=== PATIENT | male | born 1975 | race Caucasian/White ===

== ENCOUNTER 2021-04-16 15:13 | Inpatient (IN) | payer OTHER ==
[~2021-04-16] VITALS: Ht 172.7 cm; Wt 114.1 kg
[2021-04-16 16:06] LABS: Bilirubin, Direct 3.1 mg/dL (0.0-0.3); Troponin I 0.019 ng/mL (0.000-0.040)
[2021-04-16 16:25] LABS: International Normalized Ratio 1.46
[2021-04-16 16:26] LABS: Ethanol (Alcohol), Blood, Med 87 mg/dL
[2021-04-16 16:27] LABS: Alanine Aminotransfer (ALT/SGP 89 U/L (12-78); Albumin, Blood 2.8 g/dL (3.4-5.0); Albumin/Globulin Ratio 0.6 (0.8-1.8); Alk Phos 125 U/L (50-136); Anion Gap 10 mmol/L (6-16); Aspartate Aminotrans (AST/SGOT 198 U/L (12-37); Bilirubin, Total 6.2 mg/dL (0.1-1.0); Blood Urea Nitrogen 3 mg/dL (8-24); Bun/Creatinine Ratio 5.1 (12.0-20.0); CO2, Blood 28 mmol/L (21-32); Calcium, Blood 7.9 mg/dL (8.5-10.1); Chloride, Blood 94 mmol/L (98-108); Creatinine, Blood 0.59 mg/dL (0.60-1.20); Globulin, Blood 4.5 g/dL (2.2-4.0); Glomerular Filtration Rate >60 (60-); Glucose, Blood 174 mg/dL (70-99); Potassium, Blood 3.2 mmol/L (3.5-5.5); Sodium, Blood 132 mmol/L (136-145); Total Protein, Blood 7.3 g/dL (6.4-8.2)
[2021-04-16 16:29] LABS: Thyroid Stimulating Hormone 0.829 uIU/mL (0.360-4.800)
[2021-04-16 18:08] LABS: Source, Urine Peds U Bag
[2021-04-16 18:15] LABS: Appearance, Urine Cloudy (Clear); Blood, Urine 2+ (Neg); Color, Urine Amber (P-Yellow); Glucose Qualitative, Urine Neg (Neg); Ketones, Urine Neg (Neg); Leukocyte Esterase, Urine 3+ (Neg); Nitrite, Urine Pos (Neg); Protein, Urine 2+ (Neg); Urobilinogen, Urine 2+ (Normal)
[2021-04-16 18:34] LABS: Bilirubin, Urine 1+ (Neg)
[2021-04-16 18:37] LABS: White Blood Cells, Urine TNTC /hpf (0-5)
[2021-04-16 18:38] LABS: Bacteria Many /hpf; Squamous Epithelial Cells Rare /hpf (Few); U Amphetamine Screen Not Detected; U Barbituate Screen Not Detected; U Benzodiazapine Screen Not Detected; U Buprenorphine Screen Not Detected; U Cannabinoids Screen DETECTED; U Cocaine Screen Not Detected; U Methadone Screen Not Detected; U Methamphetamine Screen Not Detected; U Opiates Screen DETECTED; U Oxycodone Screen Not Detected; U Phencyclidine Screen Not Detected; U Propoxyphene Screen Not Detected
--- NOTE | 2021-04-16 19:55 | NUR ---
REPORT FROM CADY LANDIN RN. PT TO FLOOR BY YEVGENIY AND STANDS TO TRANSFER TO BED. STEADY ON FEET. ALERT AND ORIENTED. BED IN LOWEST POSITION. CALL LIGHT IN REACH. ORIENTED TO UNIT AND ROOM.
[2021-04-16 21:31] LABS: Influenza A, PCR NEGATIVE (NEGATIVE); Influenza B, PCR NEGATIVE (NEGATIVE); Resp Syncytial Virus, PCR NEGATIVE (NEGATIVE); SARS-Cov-2 (COVID-19) PCR, MMC NEGATIVE (NEGATIVE)
--- NOTE | 2021-04-17 04:08 | NUR ---
ENTRY LEVEL SALES ASSOCIATE SUMMARY ADMITTED FOR SEVERE SEPSIS. PT IS A FULL CODE. PLAN FOR PARACENTESIS TODAY TO REMOVE ASCITES. HE HAS A VERY SWOLLEN ABDOMEN THAT IS CAUSING HIM PAIN - MEDICATED X1 WITH TYLENOL FOR THE PAIN AND FEVER. FEVER HAS RESOLVED. PT HAVING SOME DIFFICULTY SLEEPING UNTIL 0300. PT ON TELE AND HAS BEEN SINUS TACH IN THE 100S. SPOKE WITH THE PT ABOUT HIS NEW DIAGNOSIS OF CIRRHOSIS. HE HAS REDNESS AND WARMTH TO THE PERIUMBILICAL AREA. INDEPENDENT IN THE ROOM. AMBULATES WITHOUT DIFFICULTY.
[2021-04-17 05:11] LABS: BASOPHILS ABSOLUTE AUTO 0.09 K/mm3 (0.00-0.23); BASOPHILS PERCENT AUTO 1 % (0-2); EOSINOPHILS ABSOLUTE AUTO 0.18 K/mm3 (0.00-0.68); EOSINOPHILS PERCENT AUTO 2 % (0-6); Hematocrit 35.8 % (37.0-53.0); Hemoglobin 12.5 g/dL (13.5-17.5); IMMATURE GRAN PERCENT AUTO 2 % (0-1); LYMPHOCYTES ABSOLUTE AUTO 2.07 K/mm3 (0.84-5.20); LYMPHOCYTES PERCENT AUTO 18 % (21-46); MONOCYTES ABSOLUTE AUTO 1.59 K/mm3 (0.16-1.47); MONOCYTES PERCENT AUTO 14 % (4-13); Mean Corpuscular HGB 36.4 pg (26.0-34.0); Mean Corpuscular HGB Conc 34.9 g/dL (31.5-36.5); Mean Corpuscular Volume 104 fL (80-100); Mean Platelet Volume 11.6 fL (9.1-12.4); NEUTROPHILS ABSOLUTE AUTO 7.24 K/mm3 (1.96-9.15); NEUTROPHILS PERCENT AUTO 64 % (41-73); Platelet Count 118 K/mm3 (150-400); RDW Coefficient Variation 15.4 % (11.7-14.2); RDW Standard Deviation 58.8 fL (35.1-46.3); Red Blood Cell Count 3.43 M/mm3 (4.30-5.90); White Blood Cell Count 11.37 K/mm3 (4.00-11.30)
[2021-04-17 05:27] LABS: International Normalized Ratio 1.56; Prothrombin Time Results 15.9 Sec (9.7-11.5)
[2021-04-17 05:56] LABS: Alanine Aminotransfer (ALT/SGP 74 U/L (12-78); Albumin, Blood 2.4 g/dL (3.4-5.0); Albumin/Globulin Ratio 0.6 (0.8-1.8); Alk Phos 121 U/L (50-136); Anion Gap 8 mmol/L (6-16); Aspartate Aminotrans (AST/SGOT 158 U/L (12-37); Bilirubin, Total 6.3 mg/dL (0.1-1.0); Blood Urea Nitrogen 4 mg/dL (8-24); Bun/Creatinine Ratio 6.7 (12.0-20.0); CO2, Blood 30 mmol/L (21-32); Calcium, Blood 7.8 mg/dL (8.5-10.1); Chloride, Blood 96 mmol/L (98-108); Globulin, Blood 4.3 g/dL (2.2-4.0); Glomerular Filtration Rate >60 (60-); Glucose, Blood 126 mg/dL (70-99); Potassium, Blood 2.8 mmol/L (3.5-5.5); Sodium, Blood 134 mmol/L (136-145); Total Protein, Blood 6.7 g/dL (6.4-8.2)
[2021-04-17 15:19] LABS: Automated BF WBC Count 0.397 K/mm3 (0-999); Body Fluid WBC Count 397 /mm3 (0-999)
[2021-04-17 15:37] LABS: Lactate Dehydrogenase, Body Fl 55 U/L
[2021-04-17 15:43] LABS: Glucose, Body Fluid 179 mg/dL; Protein, Body Fluid 0.6 g/dL
[2021-04-17 16:38] LABS: RBC Count, Body Fluid 113 /mm3 (0-0)
[2021-04-17] MEDS ORDERED: SPIR25 PO (17:19)
[2021-04-17] MEDS ORDERED: CEPH500 PO (17:19)
[2021-04-17 17:29] LABS: Total Cell Count, Body Fluid 100
[2021-04-17 17:30] LABS: Appearance, Body Fluid Hazy (Clear); Color, Body Fluid Yellow (None-Yellow)
--- NOTE | 2021-04-17 18:18 | NUR ---
SHIFT SUMMARY/ DISCHARGE NOTE PT DISCHARGED HOME, LEFT ROOM VIA STEADY GAIT PRIOR TO THIS NOTE WITH RESPITE CARE PROVIDER ESCORT. IV DC'D AND BELONGINGS RETURNED. PT EDUCATED ON CIRRHOSIS, ASCITES, ETOH CESSATION AND NEW MEDICATIONS. PT AGREES TO CASE MAKER MEDICATIONS FROM [facility] AND TO TAKE MEDICATIONS PRESCRIBED. HE ALSO AGREES TO FOLLOW UP AND TO ESTABLISH A PCP.
[2021-04-18 00:11] LABS: HBSAG SCREEN Negative (Negative); HEP A AB, IGM Negative (Negative); HEP B CORE AB, TOT Negative (Negative); HEP C VIRUS AB >11.0 (0.0-0.9)
== END 2021-04-17 18:32 | disposition home or self-care (01) | DRG 872 ==
LOC: ER 15:13 → MEDS 18:02
PROVIDERS: Emergency Medicine; Physician Assistant; ADMIT Internal Medicine
PROC: HZ2ZZZZ Detoxification Services for Substance Abuse Treatment (ICD-10-PCS; principal; 2021-04-16)
PROC: 0W9G3ZZ Drainage of Peritoneal Cavity, Percutaneous Approach (ICD-10-PCS; 2021-04-17)
DX: A41.9 Sepsis, unspecified organism (principal); N39.0 Urinary tract infection, site not specified; L03.311 Cellulitis of abdominal wall; B17.10 Acute hepatitis C without hepatic coma; K76.6 Portal hypertension; R65.20 Severe sepsis without septic shock; Z20.822 Contact with and (suspected) exposure to COVID-19; F10.20 Alcohol dependence, uncomplicated; E87.6 Hypokalemia; Y90.4 Blood alcohol level of 80-99 mg/100 ml; K70.11 Alcoholic hepatitis with ascites; Z53.20 Procedure and treatment not carried out because of patient's decision for unspecified reasons; Z87.891 Personal history of nicotine dependence
CPT/HCPCS: 0241U; 36415; 49083; 71045; 74176; 74177; 80053; 81001; 82040; 82247; 82248; 82945; 83605; 83615; 83880; 84157; 84443; 84484; 85025; 85610; 86704; 86708; 86803; 87040; 87070; 87086; 87205; 87340; 89051; 96365; 96375; 99285-25; A9270; G0480; J0696; J3370; J3411; J3475; J7030; J7042; J7050; Q9967

== ENCOUNTER → 2021-04-16 | Outpatient (CLI) | payer OTHER ==
[~2021-04-16] MED LIST: CEPH500 PO; SPIR25 PO
[2021-04-16 13:27] LABS: BASOPHILS PERCENT AUTO 1 % (0-2); EOSINOPHILS ABSOLUTE AUTO 0.14 K/mm3 (0.00-0.68); EOSINOPHILS PERCENT AUTO 1 % (0-6); Hemoglobin 13.1 g/dL (13.5-17.5); IMMATURE GRAN ABSOLUTE AUTO 0.42 K/mm3 (0.00-0.10); IMMATURE GRAN PERCENT AUTO 3 % (0-1); LYMPHOCYTES ABSOLUTE AUTO 2.59 K/mm3 (0.84-5.20); LYMPHOCYTES PERCENT AUTO 17 % (21-46); MONOCYTES ABSOLUTE AUTO 1.67 K/mm3 (0.16-1.47); MONOCYTES PERCENT AUTO 11 % (4-13); Mean Corpuscular HGB 37.3 pg (26.0-34.0); Mean Corpuscular HGB Conc 36.4 g/dL (31.5-36.5); Mean Corpuscular Volume 103 fL (80-100); Mean Platelet Volume 11.4 fL (9.1-12.4); NEUTROPHILS ABSOLUTE AUTO 9.93 K/mm3 (1.96-9.15); NEUTROPHILS PERCENT AUTO 67 % (41-73); Platelet Count 146 K/mm3 (150-400); RDW Coefficient Variation 15.4 % (11.7-14.2); RDW Standard Deviation 58.2 fL (35.1-46.3); Red Blood Cell Count 3.51 M/mm3 (4.30-5.90); White Blood Cell Count 14.85 K/mm3 (4.00-11.30)
[2021-04-16 14:13] LABS: International Normalized Ratio 1.45; Prothrombin Time Results 14.9 Sec (9.7-11.5)
[2021-04-16 14:22] LABS: Alanine Aminotransfer (ALT/SGP 91 U/L (12-78); Albumin, Blood 2.9 g/dL (3.4-5.0); Albumin/Globulin Ratio 0.6 (0.8-1.8); Alk Phos 138 U/L (50-136); Anion Gap 10 mmol/L (6-16); Aspartate Aminotrans (AST/SGOT 208 U/L (12-37); Bilirubin, Total 5.9 mg/dL (0.1-1.0); Blood Urea Nitrogen 4 mg/dL (8-24); Bun/Creatinine Ratio 6.4 (12.0-20.0); CO2, Blood 31 mmol/L (21-32); Calcium, Blood 8.2 mg/dL (8.5-10.1); Chloride, Blood 93 mmol/L (98-108); Creatinine, Blood 0.63 mg/dL (0.60-1.20); Globulin, Blood 4.7 g/dL (2.2-4.0); Glomerular Filtration Rate >60 (60-); Glucose, Blood 142 mg/dL (70-99); Potassium, Blood 2.8 mmol/L (3.5-5.5); Sodium, Blood 134 mmol/L (136-145); Thyroid Stimulating Hormone 0.915 uIU/mL (0.360-4.800); Total Protein, Blood 7.6 g/dL (6.4-8.2)
== END | disposition home or self-care (01) ==
LOC: LAB SHORT 13:07
PROVIDERS: Physician Assistant
DX: R53.83 Other fatigue (principal); R18.8 Other ascites; R60.0 Localized edema
CPT/HCPCS: 80053; 83880; 84443; 85025; 85610

== ENCOUNTER → 2021-04-22 | Outpatient (CLI) | payer OTHER ==
[2021-04-22 19:36] LABS: Blood, Urine Neg (Neg); Glucose Qualitative, Urine Neg (Neg); Ketones, Urine Neg (Neg); Leukocyte Esterase, Urine 1+ (Neg); Nitrite, Urine Neg (Neg); Protein, Urine 1+ (Neg); Urobilinogen, Urine 2+ (Normal)
[2021-04-22 19:55] LABS: Appearance, Urine Hazy (Clear); Bilirubin, Urine 1+ (Neg); Color, Urine Amber (P-Yellow)
[2021-04-22 19:56] LABS: Bacteria Rare /hpf; Mucus Mod (0-Heavy); Red Blood Cells, Urine 0-2 /hpf (0-2); Squamous Epithelial Cells Rare /hpf (Few)
== END | disposition home or self-care (01) ==
LOC: LAB 15:30 → LAB SHORT 15:30
PROVIDERS: Nurse Practitioner Family
DX: N39.0 Urinary tract infection, site not specified (principal)
CPT/HCPCS: 81001; 87086

== ENCOUNTER → 2021-07-07 | Outpatient (CLI) | payer OTHER ==
[2021-07-07 15:00] LABS: Alanine Aminotransfer (ALT/SGP 87 U/L (12-78); Albumin, Blood 3.3 g/dL (3.4-5.0); Albumin/Globulin Ratio 1.1 (0.8-1.8); Alk Phos 130 U/L (50-136); Anion Gap 7 mmol/L (6-16); Aspartate Aminotrans (AST/SGOT 155 U/L (12-37); Bilirubin, Total 11.6 mg/dL (0.1-1.0); Blood Urea Nitrogen 8 mg/dL (8-24); Bun/Creatinine Ratio 13.4 (12.0-20.0); CO2, Blood 29 mmol/L (21-32); Calcium, Blood 8.8 mg/dL (8.5-10.1); Chloride, Blood 102 mmol/L (98-108); Glomerular Filtration Rate >60 (60-); Glucose, Blood 110 mg/dL (70-99); Potassium, Blood 3.8 mmol/L (3.5-5.5); Sodium, Blood 138 mmol/L (136-145); Total Protein, Blood 6.3 g/dL (6.4-8.2)
[2021-07-07 15:18] LABS: International Normalized Ratio 1.79; Prothrombin Time Results 18.1 Sec (9.7-11.5)
== END | disposition home or self-care (01) ==
LOC: LAB SHORT 14:20
PROVIDERS: Family Medicine
DX: H15.89 Other disorders of sclera (principal)
CPT/HCPCS: 80053; 85610

== ENCOUNTER 2021-08-23 14:50 | Emergency (ER) | payer OTHER ==
[~2021-08-23] VITALS: Ht 170.2 cm; Wt 111.1 kg
[2021-08-23 15:29] LABS: BASOPHILS ABSOLUTE AUTO 0.09 K/mm3 (0.00-0.23); BASOPHILS PERCENT AUTO 1 % (0-2); EOSINOPHILS ABSOLUTE AUTO 0.08 K/mm3 (0.00-0.68); EOSINOPHILS PERCENT AUTO 1 % (0-6); Hematocrit 38.9 % (37.0-53.0); Hemoglobin 13.9 g/dL (13.5-17.5); IMMATURE GRAN ABSOLUTE AUTO 0.09 K/mm3 (0.00-0.10); IMMATURE GRAN PERCENT AUTO 1 % (0-1); LYMPHOCYTES ABSOLUTE AUTO 2.63 K/mm3 (0.84-5.20); LYMPHOCYTES PERCENT AUTO 20 % (21-46); MONOCYTES ABSOLUTE AUTO 1.89 K/mm3 (0.16-1.47); MONOCYTES PERCENT AUTO 14 % (4-13); Mean Corpuscular HGB 36.2 pg (26.0-34.0); Mean Corpuscular HGB Conc 35.7 g/dL (31.5-36.5); Mean Corpuscular Volume 101 fL (80-100); Mean Platelet Volume 9.5 fL (9.1-12.4); NEUTROPHILS ABSOLUTE AUTO 8.73 K/mm3 (1.96-9.15); NEUTROPHILS PERCENT AUTO 65 % (41-73); Platelet Count 136 K/mm3 (150-400); RDW Coefficient Variation 13.6 % (11.7-14.2); RDW Standard Deviation 50.4 fL (35.1-46.3); Red Blood Cell Count 3.84 M/mm3 (4.30-5.90); White Blood Cell Count 13.51 K/mm3 (4.00-11.30)
[2021-08-23 15:43] LABS: International Normalized Ratio 1.58; Prothrombin Time Results 16.1 Sec (9.7-11.5)
[2021-08-23 15:46] LABS: Albumin, Blood 3.1 g/dL (3.4-5.0); Albumin/Globulin Ratio 1.1 (0.8-1.8); Bilirubin, Direct 3.9 mg/dL (0.0-0.3); Bilirubin, Indirect 4.9 mg/dL (0.1-0.7); Bilirubin, Total 8.8 mg/dL (0.1-1.0); Bun/Creatinine Ratio 16.3 (12.0-20.0); Calcium, Blood 9.1 mg/dL (8.5-10.1); Creatinine, Blood 0.74 mg/dL (0.60-1.20); Globulin, Blood 2.7 g/dL (2.2-4.0); Potassium, Blood 3.5 mmol/L (3.5-5.5); Total Protein, Blood 5.8 g/dL (6.4-8.2)
[2021-08-23 20:37] LABS: Automated BF WBC Count 0.083 K/mm3 (0-999); Body Fluid WBC Count 83 /mm3 (0-999)
[2021-08-23 20:40] LABS: Protein, Body Fluid 0.3 g/dL
[2021-08-23 20:59] LABS: RBC Count, Body Fluid 1011 /mm3 (0-0)
[2021-08-23 21:27] LABS: Total Cell Count, Body Fluid 100
[2021-08-23 21:28] LABS: Appearance, Body Fluid Hazy (Clear); Color, Body Fluid Yellow (None-Yellow)
== END 2021-08-23 21:53 | disposition home or self-care (01) ==
LOC: ER 14:50
PROVIDERS: Emergency Medicine; Physician Assistant
DX: R10.9 Unspecified abdominal pain (principal); Z79.899 Other long term (current) drug therapy; Z87.891 Personal history of nicotine dependence
CPT/HCPCS: 36415; 80048; 80076; 83690; 84157; 85025; 85610; 89051; J2405; J7030

== ENCOUNTER 2021-09-01 13:35 | Inpatient (IN) | payer OTHER ==
[~2021-09-01] VITALS: Ht 172.7 cm; Wt 108.1 kg
[2021-09-01 15:19] LABS: BASOPHILS ABSOLUTE AUTO 0.07 K/mm3 (0.00-0.23); BASOPHILS PERCENT AUTO 0 % (0-2); EOSINOPHILS ABSOLUTE AUTO 0.05 K/mm3 (0.00-0.68); EOSINOPHILS PERCENT AUTO 0 % (0-6); Hematocrit 37.3 % (37.0-53.0); Hemoglobin 13.1 g/dL (13.5-17.5); IMMATURE GRAN ABSOLUTE AUTO 0.21 K/mm3 (0.00-0.10); IMMATURE GRAN PERCENT AUTO 1 % (0-1); LYMPHOCYTES ABSOLUTE AUTO 2.87 K/mm3 (0.84-5.20); LYMPHOCYTES PERCENT AUTO 13 % (21-46); MONOCYTES ABSOLUTE AUTO 2.19 K/mm3 (0.16-1.47); MONOCYTES PERCENT AUTO 10 % (4-13); Mean Corpuscular HGB 35.2 pg (26.0-34.0); Mean Corpuscular HGB Conc 35.1 g/dL (31.5-36.5); Mean Corpuscular Volume 100 fL (80-100); Mean Platelet Volume 10.3 fL (9.1-12.4); NEUTROPHILS ABSOLUTE AUTO 17.21 K/mm3 (1.96-9.15); NEUTROPHILS PERCENT AUTO 76 % (41-73); Platelet Count 117 K/mm3 (150-400); RDW Coefficient Variation 14.3 % (11.7-14.2); RDW Standard Deviation 52.8 fL (35.1-46.3); Red Blood Cell Count 3.72 M/mm3 (4.30-5.90)
[2021-09-01 15:33] LABS: Albumin/Globulin Ratio 1.2 (0.8-1.8); Bilirubin, Direct 3.5 mg/dL (0.0-0.3); Bilirubin, Indirect 6.6 mg/dL (0.1-0.7); Bilirubin, Total 10.1 mg/dL (0.1-1.0); Bun/Creatinine Ratio 26.2 (12.0-20.0); Calcium, Blood 8.5 mg/dL (8.5-10.1); Creatinine, Blood 0.8 mg/dL (0.60-1.20); Globulin, Blood 2.6 g/dL (2.2-4.0); Potassium, Blood 4.8 mmol/L (3.5-5.5); Total Protein, Blood 5.6 g/dL (6.4-8.2)
[2021-09-01 16:39] LABS: Source, Urine Clean Catch
[2021-09-01 16:45] LABS: Appearance, Urine Clear (Clear); Blood, Urine 4+ (Neg); Color, Urine Amber (P-Yellow); Glucose Qualitative, Urine Neg (Neg); Ketones, Urine 1+ (Neg); Leukocyte Esterase, Urine 1+ (Neg); Nitrite, Urine Neg (Neg); Protein, Urine 1+ (Neg); Specific Gravity, Urine 1.025 (1.003-1.022); Urobilinogen, Urine 1+ (Normal)
[2021-09-01 16:54] LABS: Bilirubin, Urine 1+ (Neg)
[2021-09-01 16:56] LABS: Bacteria Rare /hpf; Squamous Epithelial Cells Not Seen /hpf (Few); White Blood Cells, Urine 0-2 /hpf (0-5)
[2021-09-01 18:56] LABS: International Normalized Ratio 1.75; Prothrombin Time Results 17.7 Sec (9.7-11.5)
[2021-09-01 19:32] LABS: Body Fluid WBC Count 70 /mm3 (0-999)
[2021-09-01 19:53] LABS: Appearance, Body Fluid Hazy (Clear); Color, Body Fluid Yellow (None-Yellow); RBC Count, Body Fluid 85 /mm3 (0-0)
[2021-09-01 19:58] LABS: Total Cell Count, Body Fluid 100
[2021-09-01 20:02] LABS: Glucose, Body Fluid 135 mg/dL; Lactate Dehydrogenase, Body Fl 46 U/L; Protein, Body Fluid 0.3 g/dL
--- NOTE | 2021-09-01 22:40 | NUR ---
RECIEVED FROM LAB CRITICAL VALUE OF LACTIC ACID 2.6, DISCUSSED WITH RD PROJECT MANAGER STACY; NOT NOTIFIED VALUE IS DOWN FROM PREVIOUS 3.4 IN ER BEFORE PT WAS ADMITTED TO MEDICAL FLOOR THIS EVENING.
[2021-09-02 05:50] LABS: BASOPHILS ABSOLUTE AUTO 0.07 K/mm3 (0.00-0.23); BASOPHILS PERCENT AUTO 0 % (0-2); EOSINOPHILS ABSOLUTE AUTO 0.18 K/mm3 (0.00-0.68); EOSINOPHILS PERCENT AUTO 1 % (0-6); Hematocrit 37.1 % (37.0-53.0); Hemoglobin 13.2 g/dL (13.5-17.5); IMMATURE GRAN ABSOLUTE AUTO 0.15 K/mm3 (0.00-0.10); IMMATURE GRAN PERCENT AUTO 1 % (0-1); LYMPHOCYTES ABSOLUTE AUTO 2.51 K/mm3 (0.84-5.20); LYMPHOCYTES PERCENT AUTO 16 % (21-46); MONOCYTES ABSOLUTE AUTO 2.16 K/mm3 (0.16-1.47); MONOCYTES PERCENT AUTO 14 % (4-13); Mean Corpuscular HGB 35.8 pg (26.0-34.0); Mean Corpuscular HGB Conc 35.6 g/dL (31.5-36.5); Mean Corpuscular Volume 101 fL (80-100); NEUTROPHILS ABSOLUTE AUTO 10.53 K/mm3 (1.96-9.15); NEUTROPHILS PERCENT AUTO 68 % (41-73); Platelet Count 108 K/mm3 (150-400); RDW Coefficient Variation 14.4 % (11.7-14.2); RDW Standard Deviation 52.3 fL (35.1-46.3); Red Blood Cell Count 3.69 M/mm3 (4.30-5.90)
--- NOTE | 2021-09-02 05:50 | NUR ---
PT IS A/O, IND IN ROOM. ADMITTED THIS SHIFT FROM ER DUE TO CELLULITIS FROM PARASCENTESIS SITE. 2 DRAINING PUNCTURE SITES DRAINING SEROSANGUINOUS FLUID, MANY ATTEMPTS TO DRESS, ASCIIES, MEDICATED FOR ABDOMINAL PAIN AND HEARTBURN. DELMER URINE. PT IS JAUNDICED.
[2021-09-02 06:11] LABS: Albumin, Blood 2.9 g/dL (3.4-5.0); Albumin/Globulin Ratio 1.1 (0.8-1.8); Bilirubin, Total 7.5 mg/dL (0.1-1.0); Bun/Creatinine Ratio 23.6 (12.0-20.0); Calcium, Blood 8.4 mg/dL (8.5-10.1); Creatinine, Blood 0.72 mg/dL (0.60-1.20); Globulin, Blood 2.6 g/dL (2.2-4.0); Potassium, Blood 4.5 mmol/L (3.5-5.5); Total Protein, Blood 5.5 g/dL (6.4-8.2)
[2021-09-02] MEDS ORDERED: LASIX80 MG PO (07:32)
[2021-09-02] MEDS ORDERED: ALDACTONE100 M1 PO (07:33)
--- NOTE | 2021-09-02 18:03 | NUR ---
DAYSHIFT SUMMARY Vitals stable this shift, patient reports severe abdominal pain, requesting PRN fentynal Q6H. Paracentesis done yesterday, puncture sites RUQ/LUQ. LUQ coupious amount of drainage from puncture, change dressing Q2H. Serosainguinous drainage noted. RUQ scant/mild drainage changed dressing x2 this shift. RLE +2 pitting edema, +3 in right foot. LLE +2 pitting edema & +4 pitting in left foot. Patient reports numbness/burning in feet at times. MD started patient on Bumex this shift & ordered fluid restriction. Awaiting cultures, possible discharge home tomorrow. Vital signs stable, afebrile.
[2021-09-03 05:15] LABS: BASOPHILS PERCENT AUTO 1 % (0-2); EOSINOPHILS ABSOLUTE AUTO 0.25 K/mm3 (0.00-0.68); EOSINOPHILS PERCENT AUTO 2 % (0-6); Hematocrit 35.5 % (37.0-53.0); Hemoglobin 12.4 g/dL (13.5-17.5); IMMATURE GRAN ABSOLUTE AUTO 0.15 K/mm3 (0.00-0.10); IMMATURE GRAN PERCENT AUTO 1 % (0-1); LYMPHOCYTES ABSOLUTE AUTO 3.11 K/mm3 (0.84-5.20); LYMPHOCYTES PERCENT AUTO 23 % (21-46); MONOCYTES ABSOLUTE AUTO 2.15 K/mm3 (0.16-1.47); MONOCYTES PERCENT AUTO 16 % (4-13); Mean Corpuscular HGB 35.6 pg (26.0-34.0); Mean Corpuscular HGB Conc 34.9 g/dL (31.5-36.5); Mean Corpuscular Volume 102 fL (80-100); Mean Platelet Volume 10.2 fL (9.1-12.4); NEUTROPHILS ABSOLUTE AUTO 8.04 K/mm3 (1.96-9.15); NEUTROPHILS PERCENT AUTO 58 % (41-73); Platelet Count 101 K/mm3 (150-400); RDW Coefficient Variation 14.4 % (11.7-14.2); Red Blood Cell Count 3.48 M/mm3 (4.30-5.90)
--- NOTE | 2021-09-03 05:17 | NUR ---
SHIFT SUMMARY 46 YR M ADMITTED ON 09/01/21 FOR SEPSIS ABDOMINAL WALL CELLULITIS. FULL CODE. NO ACUTE CHANGES THIS SHIFT. LLQ WEEPING AND DRESSING CHANGED THIS SHIFT (ABD PADS, TAPE). DRAINAGE IS SEROSAINGUINOUS AND ABD PADS WERE WET THROUGH. MEPILEX OVER PUNCTURE SITE FROM PARACENTESIS WAS CLEAN, DRY, AND INTACT. PT C/O PAIN IN HIS ABDOMEN AND WAS MEDICATED W/ FENTANYL PER EMAR. HE ALSO C/O SEVERE HEARTBURN AND WAS GIVEN TUMS PER EMAR WHICH HE STATED GAVE HIM RELIEF. PLAN IS FOR ANOTHER PARACENTESIS TODAY THEN POSSIBLE DISCHARGE.
[2021-09-03 05:53] LABS: Albumin, Blood 2.5 g/dL (3.4-5.0); Albumin/Globulin Ratio 1.1 (0.8-1.8); Bilirubin, Total 6.6 mg/dL (0.1-1.0); Bun/Creatinine Ratio 20.2 (12.0-20.0); Calcium, Blood 7.8 mg/dL (8.5-10.1); Creatinine, Blood 0.79 mg/dL (0.60-1.20); Globulin, Blood 2.3 g/dL (2.2-4.0); Potassium, Blood 4.7 mmol/L (3.5-5.5); Total Protein, Blood 4.8 g/dL (6.4-8.2)
[2021-09-03] MEDS ORDERED: BUME1 PO (10:26)
[2021-09-03] MEDS ORDERED: CEPH500 PO (10:26)
[2021-09-03] MEDS ORDERED: SPIRONOLACTONE100 M3 PO (10:27)
== END 2021-09-03 12:30 | disposition home or self-care (01) | DRG 862 ==
LOC: ER 13:35 → MEDS 13:36 → ER 20:20 → MEDS 20:20
PROVIDERS: Family Medicine; Physician Assistant; Student in an Organized Health Care Education/Training Program; ADMIT Internal Medicine
PROC: 0W9G3ZZ Drainage of Peritoneal Cavity, Percutaneous Approach (ICD-10-PCS; principal; 2021-09-03)
PROC: 3E03329 Introduction of Other Anti-infective into Peripheral Vein, Percutaneous Approach (ICD-10-PCS; 2021-09-03)
DX: T81.41XA Infection following a procedure, superficial incisional surgical site, initial encounter (principal); A41.9 Sepsis, unspecified organism; R65.20 Severe sepsis without septic shock; L03.311 Cellulitis of abdominal wall; E87.1 Hypo-osmolality and hyponatremia; J90 Pleural effusion, not elsewhere classified; K74.60 Unspecified cirrhosis of liver; B19.20 Unspecified viral hepatitis C without hepatic coma; D69.6 Thrombocytopenia, unspecified; F17.210 Nicotine dependence, cigarettes, uncomplicated; E87.70 Fluid overload, unspecified; K70.40 Alcoholic hepatic failure without coma; K70.11 Alcoholic hepatitis with ascites; Z79.2 Long term (current) use of antibiotics; Z79.899 Other long term (current) drug therapy
CPT/HCPCS: 36415; 49082; 49083; 74177; 80048; 80053; 80076; 81001; 82945; 83605; 83615; 84157; 85025; 85610; 87070; 87086; 87205; 89051; 96365; 96372; 96375; 96376; 99284-25; A9270; G0378; J0690; J0696; J1650; J2060; J2405; J3010; J3370; J7060; Q9967

== ENCOUNTER 2021-09-14 18:15 | Inpatient (IN) | payer OTHER ==
[~2021-09-14] VITALS: Ht 170.2 cm; Wt 91.9 kg
[~2021-09-14 18:15] MED LIST changes: +ALDACTONE100 M1 PO; +BUME1 PO; +LASIX80 MG PO; +SPIRONOLACTONE100 M3 PO
[2021-09-14 20:17] LABS: BASOPHILS ABSOLUTE AUTO 0.06 K/mm3 (0.00-0.23); BASOPHILS PERCENT AUTO 0 % (0-2); EOSINOPHILS PERCENT AUTO 0 % (0-6); Hematocrit 37.6 % (37.0-53.0); Hemoglobin 14.1 g/dL (13.5-17.5); IMMATURE GRAN PERCENT AUTO 1 % (0-1); LYMPHOCYTES ABSOLUTE AUTO 2.38 K/mm3 (0.84-5.20); LYMPHOCYTES PERCENT AUTO 10 % (21-46); MONOCYTES ABSOLUTE AUTO 3.06 K/mm3 (0.16-1.47); MONOCYTES PERCENT AUTO 13 % (4-13); Mean Corpuscular HGB 35.3 pg (26.0-34.0); Mean Corpuscular HGB Conc 37.5 g/dL (31.5-36.5); Mean Corpuscular Volume 94 fL (80-100); Mean Platelet Volume 10.9 fL (9.1-12.4); NEUTROPHILS ABSOLUTE AUTO 17.01 K/mm3 (1.96-9.15); NEUTROPHILS PERCENT AUTO 74 % (41-73); Platelet Count 86 K/mm3 (150-400); RDW Coefficient Variation 14.6 % (11.7-14.2); RDW Standard Deviation 49.5 fL (35.1-46.3); White Blood Cell Count 22.91 K/mm3 (4.00-11.30)
[2021-09-14 20:45] LABS: Magnesium, Blood 2.3 mg/dL (1.6-2.4)
[2021-09-14 20:49] LABS: Alanine Aminotransfer (ALT/SGP 108 U/L (12-78); Albumin, Blood 2.6 g/dL (3.4-5.0); Alk Phos 175 U/L (50-136); Anion Gap 10 mmol/L (6-16); Aspartate Aminotrans (AST/SGOT 190 U/L (12-37); Bilirubin, Total 11.9 mg/dL (0.1-1.0); Blood Urea Nitrogen 46 mg/dL (8-24); Bun/Creatinine Ratio 41.8 (12.0-20.0); CO2, Blood 31 mmol/L (21-32); Calcium, Blood 8.7 mg/dL (8.5-10.1); Chloride, Blood 75 mmol/L (98-108); Globulin, Blood 2.7 g/dL (2.2-4.0); Glomerular Filtration Rate 84 (60-); Glucose, Blood 125 mg/dL (70-99); Potassium, Blood 4.8 mmol/L (3.5-5.5); Sodium, Blood 116 mmol/L (136-145); Total Protein, Blood 5.3 g/dL (6.4-8.2)
[2021-09-14 20:53] LABS: Ethanol (Alcohol), Blood, Med <3 mg/dL
[2021-09-14 21:28] LABS: International Normalized Ratio 1.8; Prothrombin Time Results 18.2 Sec (9.7-11.5)
[2021-09-14 21:38] LABS: Automated BF WBC Count 0.003 K/mm3 (0-999); Body Fluid WBC Count 3 /mm3 (0-999)
[2021-09-14 21:54] LABS: Protein, Body Fluid 0.3 g/dL
[2021-09-14 21:55] LABS: Appearance, Body Fluid Clear (Clear); Color, Body Fluid Yellow (None-Yellow); RBC Count, Body Fluid 10 /mm3 (0-0)
[2021-09-15 00:33] LABS: Bun/Creatinine Ratio 40.9 (12.0-20.0); Calcium, Blood 8.7 mg/dL (8.5-10.1); Creatinine, Blood 1.1 mg/dL (0.60-1.20); Potassium, Blood 4.5 mmol/L (3.5-5.5)
[2021-09-15 01:50] LABS: Albumin, Blood 3.1 g/dL (3.4-5.0); Albumin/Globulin Ratio 1.4 (0.8-1.8); Bilirubin, Total 11.3 mg/dL (0.1-1.0); Bun/Creatinine Ratio 41.1 (12.0-20.0); Calcium, Blood 8.8 mg/dL (8.5-10.1); Creatinine, Blood 1.12 mg/dL (0.60-1.20); Globulin, Blood 2.2 g/dL (2.2-4.0); Potassium, Blood 4.7 mmol/L (3.5-5.5); Total Protein, Blood 5.3 g/dL (6.4-8.2)
--- NOTE | 2021-09-15 02:45 | NUR ---
PATIENT TO ROOM AT 2353 FROM ER. PATIENT IS ALERT AND ORIENTED X4. 02 SATS >95% ON RA, STATES SOME SOB DUE TO HIS ASCITES. LS CLEAR. HR SR 70s-80s. BP STABLE. 3% SODIUM INF THROUGH PERIPHERAL, DOCTOR AWARE, IV DRAWS BACK AND IS PATENT, WILL MONITOR CLOSELY. PATIENT UP TO BEDSIDE COMMODE AND HAD LARGE LIQUID BM. MEDICATED FOR NAUSEA PER EMAR. PATIENT ABLE TO REPOSITION SELF. CALL LIGHT IN REACH. SEE SHIFT ASSESSMENT FOR MORE DETAIL.
[2021-09-15 03:15] LABS: BASOPHILS ABSOLUTE AUTO 0.06 K/mm3 (0.00-0.23); BASOPHILS PERCENT AUTO 0 % (0-2); EOSINOPHILS ABSOLUTE AUTO 0.09 K/mm3 (0.00-0.68); EOSINOPHILS PERCENT AUTO 0 % (0-6); Hematocrit 35.5 % (37.0-53.0); IMMATURE GRAN ABSOLUTE AUTO 0.22 K/mm3 (0.00-0.10); IMMATURE GRAN PERCENT AUTO 1 % (0-1); LYMPHOCYTES ABSOLUTE AUTO 2.55 K/mm3 (0.84-5.20); LYMPHOCYTES PERCENT AUTO 11 % (21-46); MONOCYTES ABSOLUTE AUTO 3.08 K/mm3 (0.16-1.47); MONOCYTES PERCENT AUTO 13 % (4-13); Mean Corpuscular HGB 35.4 pg (26.0-34.0); Mean Corpuscular HGB Conc 36.6 g/dL (31.5-36.5); Mean Corpuscular Volume 97 fL (80-100); Mean Platelet Volume 10.1 fL (9.1-12.4); NEUTROPHILS ABSOLUTE AUTO 17.26 K/mm3 (1.96-9.15); NEUTROPHILS PERCENT AUTO 74 % (41-73); Platelet Count 69 K/mm3 (150-400); RDW Coefficient Variation 14.7 % (11.7-14.2); RDW Standard Deviation 52.1 fL (35.1-46.3); Red Blood Cell Count 3.67 M/mm3 (4.30-5.90); White Blood Cell Count 23.26 K/mm3 (4.00-11.30)
[2021-09-15 03:44] LABS: Bun/Creatinine Ratio 41.2 (12.0-20.0); Calcium, Blood 8.6 mg/dL (8.5-10.1); Creatinine, Blood 1.14 mg/dL (0.60-1.20); Potassium, Blood 4.8 mmol/L (3.5-5.5)
--- NOTE | 2021-09-15 05:25 | NUR ---
SHIFT SUMMARY PATIENT REMAINS ALERT AND ORIENTED X4, NO NEURO CHANGES. 02 SATS 100% ON RA. HR SR 70s-80s. BP STABLE. PATIENT UP TO BSC, 2 LARGE LIQUID BROWN BMs, BRIGHT RED BLOOD WHEN WIPIING. PATIENT HAS NOT URINATED, NO URGE TO. 3% SODIUM INF, CHECKED IV LINE, REMIANS PATENT. SPOKE WITH ABOUT SODIUM LABS AND CT RESULTS, NO CHANGES. CALL LIGHT IN REACH.
[2021-09-15 05:41] LABS: Bun/Creatinine Ratio 42.5 (12.0-20.0); Calcium, Blood 8.9 mg/dL (8.5-10.1); Creatinine, Blood 1.13 mg/dL (0.60-1.20); Potassium, Blood 4.6 mmol/L (3.5-5.5)
[2021-09-15 06:27] LABS: Source, Urine Clean Catch
[2021-09-15 07:05] LABS: U Amphetamine Screen Not Detected
[2021-09-15 07:06] LABS: Appearance, Urine Clear (Clear); Blood, Urine 1+ (Neg); Color, Urine Yellow (P-Yellow); Glucose Qualitative, Urine Neg (Neg); Ketones, Urine Neg (Neg); Leukocyte Esterase, Urine Neg (Neg); Nitrite, Urine Neg (Neg); Protein, Urine 1+ (Neg); U Barbituate Screen Not Detected; U Benzodiazapine Screen DETECTED; U Buprenorphine Screen Not Detected; U Cannabinoids Screen DETECTED; U Cocaine Screen Not Detected; U Methadone Screen Not Detected; U Methamphetamine Screen Not Detected; U Opiates Screen DETECTED; U Oxycodone Screen Not Detected; U Phencyclidine Screen Not Detected; U Propoxyphene Screen Not Detected; Urobilinogen, Urine 1+ (Normal)
[2021-09-15 07:17] LABS: Bilirubin, Urine 1+ (Neg)
[2021-09-15 07:19] LABS: Bacteria Rare /hpf; Red Blood Cells, Urine 0-2 /hpf (0-2); Squamous Epithelial Cells Few /hpf (Few); White Blood Cells, Urine 0-2 /hpf (0-5)
--- NOTE | 2021-09-15 09:00 | NUR ---
ASSUMED CARE REPORT FROM MAURIZIO RICE AT 0700. PT RESTING IN BED. A&OX 4. FOLLOWS COMMANDS. STATES HE IS FEELING BETTER. 3% NACL INFUSING VIA PIV, LAC, 20G. GOOD BLOOD RETURN. WILL MONITOR CLOSELY. INCREASED RATE TO 50 ML/HR. AWAITING PARACENTESIS. ABD FIRM, DISTENDED. TYMPANIC. BT X 4. MEDICATED FOR NAUSEA AFTER BREAKFAST, NO EMESIS. PT ABLE TO AMB TO TOILET s DIFFICULTIES. LOOSE BROWN LIQUID STOOLS. WILL CONTINUE TO MONITOR.
[2021-09-15 10:36] LABS: Automated BF WBC Count 0.067 K/mm3 (0-999); Body Fluid WBC Count 67 /mm3 (0-999)
[2021-09-15 11:09] LABS: RBC Count, Body Fluid 43 /mm3 (0-0)
[2021-09-15 11:46] LABS: Appearance, Body Fluid Clear (Clear); Color, Body Fluid Yellow (None-Yellow); Total Cell Count, Body Fluid 100
[2021-09-15 11:52] LABS: Bun/Creatinine Ratio 42.2 (12.0-20.0); Calcium, Blood 8.1 mg/dL (8.5-10.1); Creatinine, Blood 1.02 mg/dL (0.60-1.20); Potassium, Blood 4.5 mmol/L (3.5-5.5)
[2021-09-15 17:11] LABS: Potassium, Blood 4.9 mmol/L (3.5-5.5)
--- NOTE | 2021-09-15 17:31 | NUR ---
SHIFT SUMMARY NA INCREASED TO 122 c SALT TABS AND 3% NACL, PLACED ON STANDBY PER DR HERNÁNDEZ. REPEAT BMP AT 2300. PT HAD INCREASED NAUSEA, SELF INDUCED VOMITING, SMALL AMOUNT OF EMESIS. PT REPORTS BURNING PAIN TO EPIGASTRIC REGION. DISCOURAGED PT FROM PLACING HANDS IN MOUTH AND ORDER OBTAINED FOR GI COCKTAIL. PARACENTESIS COMPLETE THIS SHIFT, 6.2L OFF. TOLERATED WELL. ALBUMIN GIVEN. PT UP TO BATHROOM SEVERAL TIMES THIS SHIFT. VSS. WILL CONTINUE TO MONITOR UNTIL REPORT TO ONCOMING NURSE.
--- NOTE | 2021-09-15 21:34 | NUR ---
ASSUMED CARE AT 1900 PATIENT IS ALERT AND ORIENTED X4, INDEPENDENT IN ROOM. 02 SATS >95% ON RA, DENIES SOB. HR SR AT 90s, BP STABLE, DENIES CP/PRESSURE. ABDOMEN DISTENDED, PATIENT DENIES PAIN, STATES HE FEELS MUCH BETTER. HAVING SEVERAL LOOSE BMs. CALL LIGHT IN REACH. SEE SHIFT ASSESSMENT FOR MORE INFORMATION.
[2021-09-15 22:57] LABS: Albumin, Blood 2.4 g/dL (3.4-5.0); Albumin/Globulin Ratio 1.3 (0.8-1.8); Bun/Creatinine Ratio 38.9 (12.0-20.0); Calcium, Blood 7.6 mg/dL (8.5-10.1); Creatinine, Blood 0.98 mg/dL (0.60-1.20); Globulin, Blood 1.8 g/dL (2.2-4.0); Potassium, Blood 4.2 mmol/L (3.5-5.5); Total Protein, Blood 4.2 g/dL (6.4-8.2)
[2021-09-15 23:04] LABS: International Normalized Ratio 1.84; Prothrombin Time Results 18.6 Sec (9.7-11.5)
--- NOTE | 2021-09-16 05:52 | NUR ---
SHIFT SUMMARY PATIENT REMAINS ALERT AND ORIENTED X4. 02 SATS >95% ON RA. HR SR 80s-90s. BP STABLE, DENIES CP PRESSURE. PATIENT INDEPENDENT IN ROOM. LAYTON ORDERED PRN FOR INDIGESTION. CALL LIGHT IN REACH, NO ACUTE CHANGES.
[2021-09-16 06:15] LABS: Bun/Creatinine Ratio 36.6 (12.0-20.0); Calcium, Blood 7.9 mg/dL (8.5-10.1); Creatinine, Blood 0.96 mg/dL (0.60-1.20); Potassium, Blood 4.2 mmol/L (3.5-5.5)
--- NOTE | 2021-09-16 09:00 | NUR ---
ASSUMED CARE: REPORT RECEIVED FROM MAURIZIO De Oliveira RN. ASSUMED CARE OF THIS PT AT APPROX 0700. ON ASSESSMENT, THE PT IS AWAKE, A&O TO ALL. HE DENIES PAIN AT THIS TIME, IS INDEPENDENT IN THE ROOM & ABLE TO MAKE NEEDS KNOWN PRN. LS ARE CLEAR T/O, PT ON RA W/ O2 SATS > 92%. MONITOR SHOWS SR W/ PACs, HR 80s, BP STABLE. PT HAS CONSISTENT C/O INDIGESTION, RELIEVED W/ GI COCKTAIL PER EMAR. ABD IS ROUND & MODERATELY DISTENDED. PT STS THIS IS "BETTER" SINCE PARACENTESIS YESTERDAY. VOIDS URINE W/O DIFFICULTY. SKIN CONDITION OVERALL INTACT, PT REPOSITIONS SELF NEEDED FOR COMFORT. WILL CONTINUE TO MONITOR & UPDATE NEEDED.
--- NOTE | 2021-09-16 12:15 | NUR ---
DR HASSAN: PROVIDER HAS BEEN CONTACTED BY THIS RN R/T PT's CONTINUED C/O EPIGASTRIC PAIN/ GI UPSET. PT RECEIVED PRN GI COCKTAIL THIS AM & CANNOT HAVE ANOTHER DOSE YET. HE STS THAT HE WAS GIVEN THE "DOUBLE STRENGTH" VERSION WHEN HAVING THIS PAIN BEFORE & THAT IT ALLEVIATED HIS SYMPTOMS. DR HASSAN IS OKAY W/ THIS & PLANS TO PLACE ORDERS. PROVIDER NOW AT BEDSIDE TO THALIA PT. SHE HAS ORDERED A BLADDER US FOR THIS PT, HE STS HAVING SOME BLOOD IN BOTH HIS URINE & STL "SOMETIMES." MONITOR FOR CONTINUED RECTAL BLEEDING. DR HASSAN HAS SPOKEN W/ DR ROCA, THE GI PROVIDER BOXING TRAINER TODAY, & HE STS THAT THE PT SHOULD BE SEEN AN OUTPATIENT IF HE IS CURRENTLY STABLE. OKAY FOR MEDICAL STATUS, NO TELE NECESSARY, ORDERS PLACED.
--- NOTE | 2021-09-16 18:45 | NUR ---
SHIFT SUMMARY / TRANSFER TO MEDICAL FLOOR: NO ACUTE CHANGES SINCE PRIOR UPDATES. PT REMAINS A&O TO ALL, INDEPENDENT IN ROOM. LS CLEAR T/O, ON RA W/ O2 SATS > 92%. HEART MONITOR NO LONGER IN PLACE, MED NO TELE STATUS. PT TOLERATING PO INTAKE WELL, C/O INDIGESTION & GI UPSET DECREASED THIS AFTERNOON. VOIDS W/O DIFFICULTY, BLADDER US SHOW HIGH POST VOID RESIDUAL - SEE REPORT. SKIN OVERALL INTACT, PT REPOSITIONS SELF FREQUENTLY W/O DIFFICULTY. REPORT HAS BEEN GIVEN TO MARINO Bobo RN TO ASSUME CARE. PT TRANSFERRED TO ROOM 343 AT APPROX 1845 VIA WC BY CAITLYN ROBERTSON. CHART, BELONGINGS & FAMILY HAVE GONE W/ PT AT THIS TIME.
--- NOTE | 2021-09-17 04:18 | NUR ---
SHIFT SUMMARY PT HAD A DIFFICULT TIME SLEEPING AGAIN THIS EVENING. ONLY SLEEPING FOR VERY SHORT BITS OF TIME AT A TIME. ABD SEVERELY DISTENDED AND FIRM. PT HAVING GERD LIKE SYMPTOMS. MEDICATED X 2 W/ GI COCKTAIL. PT TOOK A SHOWER THIS EVENING. SHOWER GOT INTERRUPTED WHEN IT WAS DISCOVERED IT WAS FLOODING DOWN TO THE FLOOR BELOW. MAINTAINANCE AWARE. OTHERWISE NO ACUTE CHANGES THIS SHIFT. WILL CONTINUE TO MONITOR.
[2021-09-17 06:43] LABS: BASOPHILS ABSOLUTE AUTO 0.09 K/mm3 (0.00-0.23); BASOPHILS PERCENT AUTO 1 % (0-2); EOSINOPHILS ABSOLUTE AUTO 0.31 K/mm3 (0.00-0.68); EOSINOPHILS PERCENT AUTO 2 % (0-6); Hematocrit 33.3 % (37.0-53.0); Hemoglobin 12.2 g/dL (13.5-17.5); IMMATURE GRAN ABSOLUTE AUTO 0.31 K/mm3 (0.00-0.10); IMMATURE GRAN PERCENT AUTO 2 % (0-1); LYMPHOCYTES ABSOLUTE AUTO 3.35 K/mm3 (0.84-5.20); LYMPHOCYTES PERCENT AUTO 20 % (21-46); MONOCYTES ABSOLUTE AUTO 2.96 K/mm3 (0.16-1.47); MONOCYTES PERCENT AUTO 17 % (4-13); Mean Corpuscular HGB 35.5 pg (26.0-34.0); Mean Corpuscular HGB Conc 36.6 g/dL (31.5-36.5); Mean Corpuscular Volume 97 fL (80-100); Mean Platelet Volume 10.7 fL (9.1-12.4); NEUTROPHILS ABSOLUTE AUTO 10.17 K/mm3 (1.96-9.15); NEUTROPHILS PERCENT AUTO 59 % (41-73); Platelet Count 62 K/mm3 (150-400); RDW Coefficient Variation 15.3 % (11.7-14.2); Red Blood Cell Count 3.44 M/mm3 (4.30-5.90); White Blood Cell Count 17.19 K/mm3 (4.00-11.30)
[2021-09-17 07:17] LABS: Albumin, Blood 2.5 g/dL (3.4-5.0); Albumin/Globulin Ratio 1.2 (0.8-1.8); Bilirubin, Total 8.1 mg/dL (0.1-1.0); Bun/Creatinine Ratio 30.4 (12.0-20.0); Calcium, Blood 7.7 mg/dL (8.5-10.1); Creatinine, Blood 1.48 mg/dL (0.60-1.20); Potassium, Blood 5.3 mmol/L (3.5-5.5); Total Protein, Blood 4.5 g/dL (6.4-8.2)
[2021-09-17 10:26] LABS: Uric Acid, Blood 6.5 mg/dL (3.5-7.2)
--- NOTE | 2021-09-17 11:49 | NUR ---
PATIENT HAD A BM, WITH KALEB BLOOD PRESENT IN TOILET AFTERWARD. DR. AHSSAN WAS CALLED AND ASKED THIS SOFTWARE SPECIALIST TO CALL DR ROCA. A MESSAGE WAS LEFT FOR DR. ORCA AT HIS OFFICE. DR. HASSAN IS STOPING BACK THIS AFTERNOON TO ASSESS PATIENT FOR HEMORRHOIDS. ALBUMIN IS RUNNING AT THIS TIME, BOTTLE 1 OF 6. PATIENT WILL HAVE PARACENTISIS EITHER THIS AFTERNOON OR TOMORROW.
[2021-09-17 15:21] LABS: BASOPHILS ABSOLUTE AUTO 0.06 K/mm3 (0.00-0.23); BASOPHILS PERCENT AUTO 0 % (0-2); EOSINOPHILS PERCENT AUTO 1 % (0-6); Hematocrit 34.7 % (37.0-53.0); Hemoglobin 12.6 g/dL (13.5-17.5); IMMATURE GRAN ABSOLUTE AUTO 0.33 K/mm3 (0.00-0.10); IMMATURE GRAN PERCENT AUTO 2 % (0-1); LYMPHOCYTES ABSOLUTE AUTO 2.69 K/mm3 (0.84-5.20); LYMPHOCYTES PERCENT AUTO 15 % (21-46); MONOCYTES ABSOLUTE AUTO 3.03 K/mm3 (0.16-1.47); MONOCYTES PERCENT AUTO 17 % (4-13); Mean Corpuscular HGB 35.7 pg (26.0-34.0); Mean Corpuscular HGB Conc 36.3 g/dL (31.5-36.5); Mean Corpuscular Volume 98 fL (80-100); Mean Platelet Volume 10.8 fL (9.1-12.4); NEUTROPHILS ABSOLUTE AUTO 11.61 K/mm3 (1.96-9.15); NEUTROPHILS PERCENT AUTO 65 % (41-73); NRBC ABSOLUTE 0.02 K/mm3 (0.00-0.02); NRBC Auto 0.1 /100 WBC (0.0-0.2); Platelet Count 73 K/mm3 (150-400); RDW Coefficient Variation 15.3 % (11.7-14.2); RDW Standard Deviation 55.4 fL (35.1-46.3); Red Blood Cell Count 3.53 M/mm3 (4.30-5.90); White Blood Cell Count 17.82 K/mm3 (4.00-11.30)
--- NOTE | 2021-09-17 15:48 | NUR ---
PATIENT HAD ANOTHER BM THAT HAD A GREAT AMOUNT OF KALEB BLOOD AND CLOTS. DR. HASSAN CAME BACK TO SEE THE PATIENT AND WAS UPDATED WITH BLOODY STOOL. SHE CONTACTED THE GI DOCTOR HERSELF, WE WERE STILL WAITING FOR A CALL BACK. PATIENT WAS THEN TAKEN STAT FOR PARACENTESIS, AND IS MOVING INTO ROOM 342, BECASUE HIS (341) SHOWER IS LEAKING. ALSO ORDERED AN ADDITIONAL CBC.
[2021-09-17 16:49] LABS: Eosinophils-Raw #,Urine 1
--- NOTE | 2021-09-17 17:23 | NUR ---
PATIENT HAD KALEB BLEEDING WITH CLOTS IN BM TODAY. HE WILL HAVE A SCOPE TOMORROW. DR. HASSAN AND THE GI SPECIALIT HAVE BEEN IN TO SEE HIM. HE HAS HAD NEW ORDER WRITTEN THROUGH OUT THE DAY. PATIENT HAD ONE BAG OF 6 OUT OF ALBUMIN. THE REST WERE HELD AFTER HE HAD PARACENTESIS AND 3 LITERS ONLY COULD BE REMOVED. (NEEDED AT LEAST 5 FOR ALBUMIN). PATIENT ABD EXTREMELY DISTENDED WITH SOME PAIN. CHEST XRAY WAS JUST OBTAINED. PATIENT HAS A COUGH PRODUCING SIGALA SPUTUM AND PROVIDER WANTED TO FU WITH PLUERL EFFUSION TO ENSURE THIS ISN'T WORSENING AND CAUSING THE SPUTUM. PATIENT WAS TOLD THAT HE HAS HEMMORHOIDS HOWERVER ALL OF THE BLEEDING IS NOT FROM THAT ONLY. STILL WAITING FOR MORE POTENTIAL ORDERS FOR ENDOSCOPY AND NPO STATUS.
--- NOTE | 2021-09-18 04:00 | NUR ---
SHIFT SUMMARY PATIENT HAD NO ACUTE CHANGES. NPO AT THIS TIME FOR PROCEDURE TODAY. SUPPOSITORY GIVEN FOR HEMORRHOIDS TX. AXOX 4 AND INDEPENDENT IN ROOM. REPORTS DIFFICULT TIME SLEEPING BUT REFUSED TRAZADONE. DECIDED TO TAKE MELATONIN 5 MG LATER IN SHIFT. PATIENT WAS OBSERVED SLEEPING MULTIPLE TIMES PRIOR TO TAKING SLEEP AID. MEDICATED X ONE WITH MAALOX PLUS FOR EPIGASTRIC PAIN. VSS/AFEBRILE. DENIES SOB AND N/V. FLUID RESTRICTIONS 1,200 mL. PIV REMAINS INTACT. PATIENT IN W/C GOING AROUND HALLS WITH FAMILY AT START OF SHIFT. CALL LIGHT IN REACH. BED IN LOWEST POSITION. WILL CONTINUE TO MONITOR UNTIL DAY SHIFT NURSE ASSUMES CARE.
[2021-09-18 06:11] LABS: BASOPHILS ABSOLUTE AUTO 0.05 K/mm3 (0.00-0.23); BASOPHILS PERCENT AUTO 0 % (0-2); EOSINOPHILS PERCENT AUTO 1 % (0-6); Hematocrit 32.4 % (37.0-53.0); Hemoglobin 11.9 g/dL (13.5-17.5); IMMATURE GRAN ABSOLUTE AUTO 0.36 K/mm3 (0.00-0.10); IMMATURE GRAN PERCENT AUTO 2 % (0-1); LYMPHOCYTES ABSOLUTE AUTO 3.34 K/mm3 (0.84-5.20); LYMPHOCYTES PERCENT AUTO 20 % (21-46); MONOCYTES ABSOLUTE AUTO 2.67 K/mm3 (0.16-1.47); MONOCYTES PERCENT AUTO 16 % (4-13); Mean Corpuscular HGB 35.3 pg (26.0-34.0); Mean Corpuscular HGB Conc 36.7 g/dL (31.5-36.5); Mean Corpuscular Volume 96 fL (80-100); Mean Platelet Volume 10.6 fL (9.1-12.4); NEUTROPHILS ABSOLUTE AUTO 10.55 K/mm3 (1.96-9.15); NEUTROPHILS PERCENT AUTO 62 % (41-73); Platelet Count 77 K/mm3 (150-400); RDW Coefficient Variation 15.2 % (11.7-14.2); RDW Standard Deviation 53.1 fL (35.1-46.3); Red Blood Cell Count 3.37 M/mm3 (4.30-5.90); White Blood Cell Count 17.07 K/mm3 (4.00-11.30)
[2021-09-18 06:32] LABS: Albumin, Blood 2.8 g/dL (3.4-5.0); Albumin/Globulin Ratio 1.6 (0.8-1.8); Creatinine, Blood 1.5 mg/dL (0.60-1.20); Globulin, Blood 1.8 g/dL (2.2-4.0); Phosphorus, Blood 2.5 mg/dL (2.5-4.9); Potassium, Blood 5.7 mmol/L (3.5-5.5); Total Protein, Blood 4.6 g/dL (6.4-8.2)
--- NOTE | 2021-09-18 13:54 | NUR ---
09/18/21 1354 Tiara Aponte MONITOR INTACT WITH CONTINUOUS PULSE OXIMETRY AND INTERMITTENT BP. O2 VIA N/C INTACT THROUGHOUT SEDATION/PROCEDURE. 3-LEAD EKG REVIEWED WITH PHYSICIAN PRIOR TO START OF PROCEDURE. See Anesthesia record.
--- NOTE | 2021-09-18 17:30 | NUR ---
SHIFT SUMMARY PT ALERT AND ORIENTED, FOLLOWS COMMANDS. PT TOLERATING DIET, STILL WITH SEVERE DISTENTION IN ABD. PT DOWN FOR EGD TODAY, NO ACTIVE BLEED FOUND, STARTED ON CARAFATE. BP REMAINS STABLE, CONTINUING ALBUMIN AND MIDODRINE.
--- NOTE | 2021-09-19 05:51 | NUR ---
SHIFT SUMMARY NOC: PT COMPLIANT WITH CARE. GI COCKTAIL GIVEN FOR INDIGESTION. PT SLEPT ALL NIGHT. NO ISSUES.
[2021-09-19 06:09] LABS: BASOPHILS ABSOLUTE AUTO 0.06 K/mm3 (0.00-0.23); BASOPHILS PERCENT AUTO 0 % (0-2); EOSINOPHILS ABSOLUTE AUTO 0.17 K/mm3 (0.00-0.68); EOSINOPHILS PERCENT AUTO 1 % (0-6); Hematocrit 27.6 % (37.0-53.0); Hemoglobin 10.1 g/dL (13.5-17.5); IMMATURE GRAN ABSOLUTE AUTO 0.29 K/mm3 (0.00-0.10); IMMATURE GRAN PERCENT AUTO 2 % (0-1); LYMPHOCYTES ABSOLUTE AUTO 2.55 K/mm3 (0.84-5.20); LYMPHOCYTES PERCENT AUTO 19 % (21-46); MONOCYTES ABSOLUTE AUTO 2.29 K/mm3 (0.16-1.47); MONOCYTES PERCENT AUTO 17 % (4-13); Mean Corpuscular HGB 35.6 pg (26.0-34.0); Mean Corpuscular HGB Conc 36.6 g/dL (31.5-36.5); Mean Corpuscular Volume 97 fL (80-100); Mean Platelet Volume 10.8 fL (9.1-12.4); NEUTROPHILS ABSOLUTE AUTO 8.35 K/mm3 (1.96-9.15); NEUTROPHILS PERCENT AUTO 61 % (41-73); Platelet Count 78 K/mm3 (150-400); RDW Coefficient Variation 15.5 % (11.7-14.2); RDW Standard Deviation 54.7 fL (35.1-46.3); Red Blood Cell Count 2.84 M/mm3 (4.30-5.90); White Blood Cell Count 13.71 K/mm3 (4.00-11.30)
[2021-09-19 06:32] LABS: Albumin, Blood 3.2 g/dL (3.4-5.0); Albumin/Globulin Ratio 2.1 (0.8-1.8); Bilirubin, Total 8.7 mg/dL (0.1-1.0); Bun/Creatinine Ratio 44.3 (12.0-20.0); Calcium, Blood 8.5 mg/dL (8.5-10.1); Creatinine, Blood 1.67 mg/dL (0.60-1.20); Globulin, Blood 1.5 g/dL (2.2-4.0); Phosphorus, Blood 3.4 mg/dL (2.5-4.9); Potassium, Blood 4.9 mmol/L (3.5-5.5); Total Protein, Blood 4.7 g/dL (6.4-8.2)
--- NOTE | 2021-09-19 17:41 | NUR ---
SHIFT SUMMARY PT ALERT AND ORIENTED, OCCASIONALLY DISORIENTED, FOLLOWS COMMANDS. PT C/O ABD PAIN PERIODICALLY, RELIEVED BY PRN MAALOX. ABD STILL VERY DISTENDED. PT AMBULATING TO BATHROOM INDEPENDENTLY. BP REMAINS STABLE. WILL CONTINUE TO MONITOR.
--- NOTE | 2021-09-19 22:28 | NUR ---
PT WOKE UP AND HAVING ALOC. PT IS HAVING TARDIVE DYSKINESIA/DYSTONIC LIKE TWITCHES. EYES ROLLING IN HEAD, GRINDING TEETH, UNABLE TO KEEP STILL OR FOLLOW COMMANDS. PT IS ABLE TO SAY NAME AND REPEATS THAT HE NEEDS THE BATHROOM. AMMONIA LEVEL ELEVATED 189, LACTULOSE GIVEN PER ORDER. PT HAD INCONTINENT EXTRA LARGE STOOL WITH SMALL AMOUNT KALEB RED BLOOD. HYPONATREMIC NA 119. MD UPDATED. STAT BMP AND AMMONIA. TRANSFER ORDERS TO ICU. REPORT CALLED TO JUSTINA RICE.
[2021-09-19 22:51] LABS: Bun/Creatinine Ratio 43.6 (12.0-20.0); Calcium, Blood 9.1 mg/dL (8.5-10.1); Creatinine, Blood 1.65 mg/dL (0.60-1.20); Potassium, Blood 5.5 mmol/L (3.5-5.5)
--- NOTE | 2021-09-19 23:15 | NUR ---
Assumed Care. Pt arrived to room around 2248. Confused, not responding when asked questions, grunting, grinding his teeth, biting his lips, arching his back, bouncing in bed, pupils are very sluggish, gazeing upwards, twitches noted in the face, not responding to his name or following directions. Blood in mouth from biting his lips. HR sinus in the 80's. BP is not correct as the patient is not able to hold still. Sats good on Ra. Very Jaudice, abdomin soft, round from acites. Last paracentesis was 09/15. NA came back at 122, Amonia has increased to 231. Called Dr. Kramer and informed of situation. Order for 0.5mg of Ativan ordered. He will look at chart to see about what to do on increasing ammonia levels.
--- NOTE | 2021-09-20 01:21 | NUR ---
ATTEMPTED TO PLACE CATHETER TWICE. FIRST ONE HE TENSED UP AND BARED DOWN SHOOTING THE CATHETER OUT BEFORE BEING ABLE TO FILL THE BALLOON. SECOND ATTEMPT HE CONTINUED TO TENSE UP AND BARE DOWN NOT ALLOWING THE CATHETER TO PASS TO THE BLADDER. ALSO HAS ENLARGED PROSTATE, COUDE DID NOT WORK. WAS ABLE TO GET CLEAN CATCH HE CONTINUED TO BARE DOWN. DURING AT WHICH HE CONTINUED TO GO STIFF, ARMS SHARYN INWARD, BILATERAL FEET ARE NOW INWARD CROSSING AND UNABLE TO PULL THEM APART. hE HAS CALMED DOWN AND IS NO LONGER HAVING TWITCHES IN THE FACE BUT JAW IS TIGHT.
[2021-09-20 01:44] LABS: U Amphetamine Screen Not Detected; U Barbituate Screen DETECTED; U Benzodiazapine Screen DETECTED; U Buprenorphine Screen Not Detected; U Cannabinoids Screen DETECTED; U Cocaine Screen Not Detected; U Methadone Screen Not Detected; U Methamphetamine Screen Not Detected; U Opiates Screen Not Detected; U Oxycodone Screen Not Detected; U Phencyclidine Screen Not Detected; U Propoxyphene Screen Not Detected
[2021-09-20 03:40] LABS: BASOPHILS ABSOLUTE AUTO 0.03 K/mm3 (0.00-0.23); BASOPHILS PERCENT AUTO 0 % (0-2); EOSINOPHILS ABSOLUTE AUTO 0.05 K/mm3 (0.00-0.68); EOSINOPHILS PERCENT AUTO 0 % (0-6); Hematocrit 30.3 % (37.0-53.0); Hemoglobin 11.2 g/dL (13.5-17.5); IMMATURE GRAN ABSOLUTE AUTO 0.18 K/mm3 (0.00-0.10); IMMATURE GRAN PERCENT AUTO 2 % (0-1); LYMPHOCYTES ABSOLUTE AUTO 1.82 K/mm3 (0.84-5.20); LYMPHOCYTES PERCENT AUTO 15 % (21-46); MONOCYTES ABSOLUTE AUTO 1.57 K/mm3 (0.16-1.47); MONOCYTES PERCENT AUTO 13 % (4-13); Mean Corpuscular HGB 35.8 pg (26.0-34.0); Mean Corpuscular Volume 97 fL (80-100); Mean Platelet Volume 10.9 fL (9.1-12.4); NEUTROPHILS ABSOLUTE AUTO 8.38 K/mm3 (1.96-9.15); NEUTROPHILS PERCENT AUTO 70 % (41-73); Platelet Count 73 K/mm3 (150-400); RDW Coefficient Variation 15.8 % (11.7-14.2); RDW Standard Deviation 55.8 fL (35.1-46.3); Red Blood Cell Count 3.13 M/mm3 (4.30-5.90); White Blood Cell Count 12.03 K/mm3 (4.00-11.30)
[2021-09-20 03:40] LABS: Base Excess Venous 8.2 mmol/L; Bicarbonate Venous 31.8 mmol/L (24.0-30.0); PCO2 Venous 32.6 mmHg (38-42); pH Blood Venous 7.57 (7.34-7.37)
[2021-09-20 03:52] LABS: International Normalized Ratio 1.86; Prothrombin Time Results 18.8 Sec (9.7-11.5)
[2021-09-20 03:57] LABS: Albumin, Blood 3.7 g/dL (3.4-5.0); Albumin/Globulin Ratio 2.6 (0.8-1.8); Bilirubin, Total 10.5 mg/dL (0.1-1.0); Bun/Creatinine Ratio 47.8 (12.0-20.0); Calcium, Blood 8.9 mg/dL (8.5-10.1); Creatinine, Blood 1.38 mg/dL (0.60-1.20); Globulin, Blood 1.4 g/dL (2.2-4.0); Phosphorus, Blood 3.1 mg/dL (2.5-4.9); Potassium, Blood 5.4 mmol/L (3.5-5.5); Total Protein, Blood 5.1 g/dL (6.4-8.2)
--- NOTE | 2021-09-20 04:07 | NUR ---
CALLED LAB AND CT SCAN RESULTS INTO DR. GIRALDO. ORDER FOR LACTOLOSE ENEMA'S Q6 WITH RECTAL TUBE. CRITICAL HIGH VBG PH OF 7.57 R/T PATIENT HYPERVENTILATING SOME. PT CONTINUES TO BE NON-RESPONSIVE, EYE MOVMENET NOTED WITH LIGHT, SLUGGISH PUPILS. OCCATIONAL MUSCLE TWITCHING AND SPASMS ARE NOTED. CONDOM CATH IS HOLDING AND WORKING.
--- NOTE | 2021-09-20 06:24 | NUR ---
SHIFT SUMMARY: ARRIVED TO UNIT JUST BEFORE MIDNIGHT. COMPLETE CONFUSION, NON-RESPONSIVE EXCEPT TO PAIN, PUPILS SLUGGISH, TARDIVE DYSKENSIS THAT INCLUDED FACIAL TWITCHES, ARCHING OF THE BACK, UNCONTROLLED BODY MOVEMENTS. IT PROGRESSED TO STIFFNESS AND LOCK JAW LIKE AFFECTS. WAS GIVEN 1MG OF CONGENTIN AND 0.5MG OF ATIVAN. CALMED HIM DOWN TO TAKE TO CT. IN CT HE STARTED TO FOAM OUT OF HIS MOUTH CAUSING CO2 LEVELS TO DROP AND APNEA PERIODS NEEDING SUCTIONING. HE HAD FEW MORE APNEA PERIODS BUT THIS RESOLVED AFTER GETTING TO ROOM. CT WAS NEGATIVE. PUPILS CONTINUE TO DRIP UPWARD OR DOWN, HE HAS REMAINED UNRESPONSIVE TO ANY OTHER THEN PAIN, AT WHICH HE JUST MOANS. AMMONIA LEVEL HIGHEST WAS 281, AT WHICH HE WAS GIVEN LACTALOSE ENEMA WITH RECTAL TUBE JUST AROUND 0530. GREEN LIQUID STOOL NOW NOTED IN TUBE. ABDOMIN REMAINS VERY DISTENDED FIRM. vS HAVE REMAINED STABLE T/O ALL THE CHANGES. LS DIMINISHED IN BASES STATS >95% ON RA. HR SINUS IN THE 70'S. VBG PH DID SHOW CRTICAL AT 7.57 R/T HYPERVENTILATION. ALL LIVER ENZYEMES ARE ABNORMAL. NEW IV PLACED IN LEFT HAND. RESTRAINTS STARTED BILATERAL WRIST AND SIDE RAILS. WILL REPORT TO [facility].
[2021-09-20 11:20] LABS: Base Excess Venous 7.9 mmol/L; Bicarbonate Venous 31.5 mmol/L (24.0-30.0); PCO2 Venous 33.5 mmHg (38-42); pH Blood Venous 7.56 (7.34-7.37)
--- NOTE | 2021-09-20 12:00 | NUR ---
RESPIRATORY PT NOTED TO BE WITH INCREASED RESPIRATORY EFFORT AND TIGHT SOUNDING UPPER AIRWAY. RT ELVI PLACED NASAL TRUMPET TO LEFT NARE. PT WITHOUT SECRETIONS TO NARES. PT RESPIRATORY EFFORT SIGNIFICANTLY DECREASED WITH NASAL TRUMPET IN PLACE. PT REMAINS ON ROOM AIR. SPO2 >94%. WILL CONTINUE TO MONITOR.
--- NOTE | 2021-09-20 17:53 | NUR ---
SHIFT SUMMARY NO ACUTE CHANGES THIS SHIFT. PT REMAINS SOMNOLENT, BUT RESPONDS TO NOXIOUS STIMULI MORE THIS EVENING. PT WITHDRAWS ALL EXTREMITIES TO NOXIOUS STIMULI AND MOANS OUT. PT DOES NOT FOLLOW COMMANDS OR RESPOND TO VERBAL STIMULI. VITAL SIGNS HAVE REMAINED STABLE. IV'S REMAIN SALINE LOCKED. NASAL TRUMPET REMAINS IN PLACE TO LEFT NARE. RECTAL TUBE REMAINS IN PLACE WITH SOFT/LIQUID GREEN STOOL OUTPUT NOTED AFTER LACTULOSE ENEMAS. ATTEMPTED TO PLACE SINGER CATH MULTIPLE TIMES WITHOUT SUCCESS. DR WOODWARD AWARE. PT WITH MULTIPLE LARGE INCONTINENT VOIDS IN ATTENDS. PT WITH OCCASIONAL SHIVERING/TREMORS/RIGIDITY NOTED AT TIMES. DR LIRIANO AWARE. PT FAMILY AT BEDSIDE THIS AFTERNOON. WILL CONTINUE TO MONITOR AND REPORT OFF TO ONCOMING RN.
--- NOTE | 2021-09-20 20:00 | NUR ---
ASSUMED CARE. ANSWERED YES TO HIS NAME, WILL OPEN HIS EYES BUT DOES NOT FOLLOW DIRECTION OR COMMANDS. SWAYING BACK AND FORTH IN BED, BOUNCING UP AND DOWN, RAISING HIS LEFT ARM ALL OVER THE PLACE. PUPILS BRISK, 4MM EQUAL. SWALLOW AND GAG ALL INTACT. MOVEING ALL EXTREMITIES WELL. LS CLEAR, SATS GOOD ON RA. ABDOMIN STILL VERY LARGE BUT APPEARS TO BE SMALLER THEN LAST NIGHT. CONDOM CATH PLACED, URINATED WELL PRIOR. RECTAL TUBE STILL IN PLACE WITH GREEN STOOL. WILL CONTINUE TO MONITOR.
--- NOTE | 2021-09-20 22:13 | NUR ---
PT WOKE UP SCREAMING AND YELLING TOSSING AND TURNING IN BED, FLIPPING OVER ON HIS STOMACH AND THEN TO BACK, HITTING THE SIDE RAILS. ABLE TO ANSWER TO HIS NAME BEING CALLED, ABLE TO STATE HSI STOMACH IS IN PAIN. VERY UNCOMFORTABLE AND GETTING TANGLED IN CORDS AND LINES. CALLED DR. FRIEDMAN AND INIFORMED OF CHANGES. GOT ORDER FOR FENTANYL AND ATIVAN WAS GIVEN PER ORDERS. PADS PLACED ON RAILS. PATIENT STARTING TO CALM DOWN SOME. WILL CONTINUE TO MONTIOR.
[2021-09-21 03:41] LABS: BASOPHILS ABSOLUTE AUTO 0.05 K/mm3 (0.00-0.23); BASOPHILS PERCENT AUTO 0 % (0-2); EOSINOPHILS ABSOLUTE AUTO 0.09 K/mm3 (0.00-0.68); EOSINOPHILS PERCENT AUTO 1 % (0-6); Hematocrit 30.1 % (37.0-53.0); Hemoglobin 10.8 g/dL (13.5-17.5); IMMATURE GRAN ABSOLUTE AUTO 0.22 K/mm3 (0.00-0.10); IMMATURE GRAN PERCENT AUTO 1 % (0-1); LYMPHOCYTES ABSOLUTE AUTO 2.33 K/mm3 (0.84-5.20); LYMPHOCYTES PERCENT AUTO 14 % (21-46); MONOCYTES ABSOLUTE AUTO 2.05 K/mm3 (0.16-1.47); MONOCYTES PERCENT AUTO 12 % (4-13); Mean Corpuscular HGB 35.4 pg (26.0-34.0); Mean Corpuscular HGB Conc 35.9 g/dL (31.5-36.5); Mean Corpuscular Volume 99 fL (80-100); Mean Platelet Volume 11.4 fL (9.1-12.4); NEUTROPHILS ABSOLUTE AUTO 11.73 K/mm3 (1.96-9.15); NEUTROPHILS PERCENT AUTO 71 % (41-73); Platelet Count 75 K/mm3 (150-400); RDW Coefficient Variation 16.1 % (11.7-14.2); RDW Standard Deviation 58.4 fL (35.1-46.3); Red Blood Cell Count 3.05 M/mm3 (4.30-5.90); White Blood Cell Count 16.47 K/mm3 (4.00-11.30)
[2021-09-21 03:55] LABS: International Normalized Ratio 2.04; Prothrombin Time Results 20.4 Sec (9.7-11.5)
[2021-09-21 03:57] LABS: Albumin, Blood 3.6 g/dL (3.4-5.0); Bilirubin, Total 16.5 mg/dL (0.1-1.0); Calcium, Blood 9.3 mg/dL (8.5-10.1); Creatinine, Blood 0.88 mg/dL (0.60-1.20); Globulin, Blood 1.2 g/dL (2.2-4.0); Magnesium, Blood 2.2 mg/dL (1.6-2.4); Phosphorus, Blood 3.9 mg/dL (2.5-4.9); Potassium, Blood 4.4 mmol/L (3.5-5.5); Total Protein, Blood 4.8 g/dL (6.4-8.2)
--- NOTE | 2021-09-21 04:10 | NUR ---
PT MORE ALERT AND ABLE TO FORM SENTENCES. ASKING QUESTIONS ABOUT WHAT HAPPENED AND HOW HE GOT INTO ICU. ASKING FOR WATER AND PAIN MEDS. EVEN CALLED HIS GIRLFRIEND. FOLLOWS DIRECTIONS. CALL LIGHT IN REACH.
--- NOTE | 2021-09-21 05:59 | NUR ---
SHIFT SUMMARY: Pt became more awake and alert t/o the night. Currently able to answer all questions appropriatly except what has occurred the last 24 hours or more from when he arrived to ICU. Able to make even phone calls to girlfriend. Asking questions about what happened and follows directions and commands now. Increase in abdominal pain noted ending in several calls to MD. Fentanyl was ordered and has been given every 2 hours. Ativan was given once. Held lactolose at midnight and this am due to bilirubin being <10 and several loose BMs. 300cc of green liquid BM in rectaL tube, which can come out this am once he is awake. Condom catheter has held with 600 output, and 1 incontient attends. Able to take oral intake, no aspiration concerns. This am labs showed increase in NA to 132, Elevation of PT to 20.4, WBC 16.47, BUN decreased to 44, Bilirubin increased to 16.5. Will report to daysmoft. Call light is in reach.
--- NOTE | 2021-09-21 11:30 | NUR ---
PT ARRIVED TRANSFER FROM ICU, ACCOMPANIED BY DIRECTOR FINANCIAL SERVICES AND POT ANNEALER. TRANSFERRED USING SLIDE SHEET FROM ICU BED TO MEDICAL BED. PT'S SKIN IS JAUNDICED. HE IS A&O X 3=4, WITH OCCASSIONAL FORGETFULNESS AND CONFUSION. PT WILL MOAN IN PAIN. RECTAL TUBE INSERTED, WITH LIQUIDY FREQUENT BROWN STOOL OUTPUT. PT HAS CONDOM CATHETER IN PLACE, DRAINING YELLOW CLEAR LIQUID. GIRLFRIEND JOO AT HIS SIDE. VSS, ROOM AIR. C/O PAIN 8-10.10 IN ABD. TREATING WITH PRN FENTANYL. PARACENTESIS PLANNED FOR TOMORROW.
--- NOTE | 2021-09-21 11:58 | NUR ---
TRANSFER TO MEDICAL REPORT CALLED VIA PHONE. ALL QUESTIONS ANSWERED. PT TAKEN TO ROOM 342 VIA BED. ALL PT MEDICATIONS AND BELONGINGS TAKEN WITH PT. PT SPOUSE AT BEDSIDE.
--- NOTE | 2021-09-21 18:50 | NUR ---
SHIFT SUMMARY PT WITH MULTIPLE REQUESTS FOR SNACKS. FAMILY AT BEDSIDE THROUGH OUT THE DAY. PT'S PAIN IS ADEQUATELY CONTROLLED WITH PRN FENTANYL 50 MCGS Q 2 HOURS. PT IS A&0 X 3-4, FORGETFUL AND SOMETIMES CANNOT FINISH HIS SENTENCES. HE IS NOT DROWSY. HE WILL CALL RN, AND THEN FORGET WHY HE CALLED, WHICH FRUSTRATES HIM. HE IS VERY MOBILE IN BED. PT STATES HE WANTS TO KEEP THE RECTAL TUBE IN, DUE TO HIS FREQUENT AND LOOSE WATERY STOOLS. CONDOM CATHETER IN PLACE WITH YELLOW URINE OUTPUT. PT'S ATTITUDE CAN CHANGE QUICKLY, AND HE WILL BECOME CRANKY WITH STAFF. HE IS VERY PAINFUL. ABD IS DISTENDED, AWAITING PARACENTESIS TOMORROW. CALL LIGHT WITHIN REACH.
--- NOTE | 2021-09-22 03:20 | NUR ---
ELECTRICIAN ASSISTANT SUMMARY HAS BEEN AWAKE AT INTERVALS SINCE HS. INTERMITTENT CALLING OUT, SOME VERBAL RESPONSES NONSENSICAL, SOME VOICED ACKNOWLEDGEMENTS OF FORGETFULESS. RECEIVED PAIN MEDS, MED FOR "HEARTBURN" AND A MED FOR SLEEP - SEE MAR FOR DETAILS. REMAINS JAUNDICED, ABD SWOLLEN. RETAL TUBE AND CONDOM CATH DRAINING. ABLE TO REPOSITION SELF IN BED, NOTE LEGS MOVING OFTEN. CALL LIGHT IN REACH. AM NURSE REPORTED THAT PARACENTESIS WILL BE PERFORMED LATER TODAY HE DIDNT HAV IT DONE YESTERDAY.
[2021-09-22 05:56] LABS: International Normalized Ratio 1.89
[2021-09-22 06:17] LABS: BASOPHILS ABSOLUTE AUTO 0.06 K/mm3 (0.00-0.23); BASOPHILS PERCENT AUTO 0 % (0-2); EOSINOPHILS ABSOLUTE AUTO 0.16 K/mm3 (0.00-0.68); EOSINOPHILS PERCENT AUTO 1 % (0-6); Hematocrit 28.4 % (37.0-53.0); Hemoglobin 10.2 g/dL (13.5-17.5); IMMATURE GRAN ABSOLUTE AUTO 0.27 K/mm3 (0.00-0.10); IMMATURE GRAN PERCENT AUTO 2 % (0-1); LYMPHOCYTES PERCENT AUTO 14 % (21-46); MONOCYTES ABSOLUTE AUTO 2.18 K/mm3 (0.16-1.47); MONOCYTES PERCENT AUTO 15 % (4-13); Mean Corpuscular HGB 35.3 pg (26.0-34.0); Mean Corpuscular HGB Conc 35.9 g/dL (31.5-36.5); Mean Corpuscular Volume 98 fL (80-100); Mean Platelet Volume 10.3 fL (9.1-12.4); NEUTROPHILS ABSOLUTE AUTO 9.78 K/mm3 (1.96-9.15); NEUTROPHILS PERCENT AUTO 67 % (41-73); NRBC ABSOLUTE 0.02 K/mm3 (0.00-0.02); NRBC Auto 0.1 /100 WBC (0.0-0.2); Platelet Count 86 K/mm3 (150-400); RDW Coefficient Variation 16.3 % (11.7-14.2); RDW Standard Deviation 59.8 fL (35.1-46.3); Red Blood Cell Count 2.89 M/mm3 (4.30-5.90); White Blood Cell Count 14.55 K/mm3 (4.00-11.30)
[2021-09-22 06:21] LABS: Albumin, Blood 3.4 g/dL (3.4-5.0); Albumin/Globulin Ratio 2.4 (0.8-1.8); Bilirubin, Total 10.6 mg/dL (0.1-1.0); Bun/Creatinine Ratio 39.4 (12.0-20.0); Calcium, Blood 8.6 mg/dL (8.5-10.1); Creatinine, Blood 1.09 mg/dL (0.60-1.20); Globulin, Blood 1.4 g/dL (2.2-4.0); Magnesium, Blood 2.3 mg/dL (1.6-2.4); Potassium, Blood 4.1 mmol/L (3.5-5.5); Total Protein, Blood 4.8 g/dL (6.4-8.2)
--- NOTE | 2021-09-22 11:43 | NUR ---
PT AWAKE DURING SHIFT REPORT. CONFUSED AND VERY FORGETFUL. YELLING OUT FREQUENTLY, BUT FORGETTING WHY. PT WITH HX OF ETOH ABUSE, CIRRHOSIS, HEP C+, AND SEVERE ASCITES. PARACENTESIS BEING DONE AT THIS TIME. PT TO TX TO 352 WHEN COMPLETE. PT INCONTINENT OF BOWEL AND BLADDER; UP TO SHOWER WITH SBA BEFORE GOING DOWN FOR US. REPORT GIVEN TO ELIDA RCIE.
[2021-09-22 12:12] LABS: Automated BF WBC Count 0.167 K/mm3 (0-999); Body Fluid WBC Count 167 /mm3 (0-999)
[2021-09-22 12:22] LABS: Glucose, Body Fluid 120 mg/dL
[2021-09-22 12:23] LABS: Protein, Body Fluid 0.6 g/dL
[2021-09-22 12:25] LABS: Amylase, Body Fluid 30 U/L
[2021-09-22 12:26] LABS: Albumin, Body Fluid 0.3 g/dL
[2021-09-22 12:34] LABS: Lactate Dehydrogenase, Body Fl 55 U/L
[2021-09-22 13:19] LABS: RBC Count, Body Fluid 190 /mm3 (0-0)
[2021-09-22 13:36] LABS: Appearance, Body Fluid Hazy (Clear); Color, Body Fluid Yellow (None-Yellow); Total Cell Count, Body Fluid 100
--- NOTE | 2021-09-22 17:43 | NUR ---
SHIFT SUMMARY PATIENT TRANSFERRED TO BACK LEE AFTER PARACENTESIS. 6.5L TAKEN OFF. ALERT BUT FORGETFUL AND CONFUSED AT TIMES. PATIENT WILL USE CALL LIGHT BUT WILL FORGET WHAT HE WAS CALLING FOR. PATIENT BECOMING FRUSTRATED WITH SELF HE WILL RANDOMLY YELL OUT OR CLICK HIS TONGUE UNCONTROLLABLY LIKE A NERVOUS TICK. FAMILY STATED THIS IS NEW AND THAT HE IS EXTRA IRRITABLE. SBA TO RESTROOM. ATTEMPTS TO VOID IN URINAL BUT MISSES AND DENIES HELP. CONTINENT BUT ATTENDS IN PLACE FOR URGENCY. C/O GI UPSET, MEDICATED PER MAY. ON 1200ML FLUID RESTRICTION, ENCOURAGING GATORADE AND PROTEIN RICH ITEMS. VSS. WILL CONTINUE TO MONITOR.
--- NOTE | 2021-09-23 05:14 | NUR ---
SHIFT SUMMARY A/O 2-3, 1P ASSIST TO BSC. 1 LG BM THIS SHIFT. MENTATION WORSENING T/O THE NIGHT AND INCREASING ERRATIC MOVEMENTS. DENIES PAIN OR SOB. NEW IV TO EVANGELINA. VSS, NO ACUTE CHANGES AT THIS TIME. BED IN LOWEST POSITION WITH CALL LIGHT IN REACH. WILL CONTINUE TO MONITOR AND REPORT TO ONCOMING RN.
[2021-09-23 08:21] LABS: BASOPHILS ABSOLUTE AUTO 0.05 K/mm3 (0.00-0.23); BASOPHILS PERCENT AUTO 1 % (0-2); EOSINOPHILS ABSOLUTE AUTO 0.25 K/mm3 (0.00-0.68); EOSINOPHILS PERCENT AUTO 3 % (0-6); Hematocrit 29.3 % (37.0-53.0); Hemoglobin 10.7 g/dL (13.5-17.5); IMMATURE GRAN ABSOLUTE AUTO 0.14 K/mm3 (0.00-0.10); IMMATURE GRAN PERCENT AUTO 1 % (0-1); LYMPHOCYTES ABSOLUTE AUTO 1.89 K/mm3 (0.84-5.20); LYMPHOCYTES PERCENT AUTO 19 % (21-46); MONOCYTES ABSOLUTE AUTO 1.56 K/mm3 (0.16-1.47); MONOCYTES PERCENT AUTO 15 % (4-13); Mean Corpuscular HGB 36.3 pg (26.0-34.0); Mean Corpuscular HGB Conc 36.5 g/dL (31.5-36.5); Mean Corpuscular Volume 99 fL (80-100); Mean Platelet Volume 10.3 fL (9.1-12.4); NEUTROPHILS PERCENT AUTO 62 % (41-73); Platelet Count 85 K/mm3 (150-400); RDW Coefficient Variation 16.1 % (11.7-14.2); RDW Standard Deviation 58.3 fL (35.1-46.3); Red Blood Cell Count 2.95 M/mm3 (4.30-5.90); White Blood Cell Count 10.19 K/mm3 (4.00-11.30)
[2021-09-23 08:37] LABS: International Normalized Ratio 1.96; Prothrombin Time Results 19.7 Sec (9.7-11.5)
[2021-09-23 08:44] LABS: Albumin, Blood 3.8 g/dL (3.4-5.0); Albumin/Globulin Ratio 2.9 (0.8-1.8); Bilirubin, Total 11.4 mg/dL (0.1-1.0); Bun/Creatinine Ratio 31.2 (12.0-20.0); Creatinine, Blood 0.8 mg/dL (0.60-1.20); Globulin, Blood 1.3 g/dL (2.2-4.0); Magnesium, Blood 2.3 mg/dL (1.6-2.4); Phosphorus, Blood 2.7 mg/dL (2.5-4.9); Potassium, Blood 3.9 mmol/L (3.5-5.5); Total Protein, Blood 5.1 g/dL (6.4-8.2)
--- NOTE | 2021-09-23 16:20 | NUR ---
SHIFT SUMMARY PATIENT IS ALERT AND ORIENTED 2-3. PATIENTS MENTATION HASNT CHANGED DURING DURATION OF SHIFT. PATIENT REMAINS ERRATIC AND ALMOST LEFT AMA WHEN FAMILY ARRIVED EARLIER IN SHIFT. PATIENT HAS NOT COMPLAINED OF PAIN, NAUSEA, SOB, OR VOMITTING THIS SHIFT. PATIENT HAS NOT HAD ANY ACUTE EVENTS THIS SHIFT. PATIENT HAS HAD SOFT BP BUT IS TAKING MIDODRINE FOR BP. VITAL SIGNS REVIEWED. BED IN LOCKED AND LOWEST POSITION. CALL LIGHT IN PLACE. WILL MONITOR UNTIL SHIFT CHANGE.
--- NOTE | 2021-09-24 04:29 | NUR ---
SHIFT SUMMARY A/OX3, FORGETFUL. IND IN ROOM WITH STEADY GAIT. DENIES PAIN OR SOB. VSS, NO ACUTE CHANGES AT THIS TIME. BED IN LOWEST POSITION WITH CALL LIGHT IN REACH. WILL CONTINUE TO MONITOR AND REPORT TO ONCOMING RN.
[2021-09-24 04:53] LABS: BASOPHILS ABSOLUTE AUTO 0.07 K/mm3 (0.00-0.23); BASOPHILS PERCENT AUTO 1 % (0-2); EOSINOPHILS ABSOLUTE AUTO 0.21 K/mm3 (0.00-0.68); EOSINOPHILS PERCENT AUTO 2 % (0-6); Hematocrit 28.9 % (37.0-53.0); Hemoglobin 10.5 g/dL (13.5-17.5); IMMATURE GRAN ABSOLUTE AUTO 0.24 K/mm3 (0.00-0.10); IMMATURE GRAN PERCENT AUTO 2 % (0-1); LYMPHOCYTES ABSOLUTE AUTO 1.56 K/mm3 (0.84-5.20); LYMPHOCYTES PERCENT AUTO 14 % (21-46); MONOCYTES ABSOLUTE AUTO 1.61 K/mm3 (0.16-1.47); MONOCYTES PERCENT AUTO 14 % (4-13); Mean Corpuscular HGB 35.8 pg (26.0-34.0); Mean Corpuscular HGB Conc 36.3 g/dL (31.5-36.5); Mean Corpuscular Volume 99 fL (80-100); NEUTROPHILS ABSOLUTE AUTO 7.49 K/mm3 (1.96-9.15); NEUTROPHILS PERCENT AUTO 67 % (41-73); Platelet Count 89 K/mm3 (150-400); RDW Coefficient Variation 16.5 % (11.7-14.2); Red Blood Cell Count 2.93 M/mm3 (4.30-5.90); White Blood Cell Count 11.18 K/mm3 (4.00-11.30)
[2021-09-24 05:12] LABS: Albumin, Blood 3.8 g/dL (3.4-5.0); Anion Gap 11 mmol/L (6-16); Blood Urea Nitrogen 25 mg/dL (8-24); Bun/Creatinine Ratio 29.1 (12.0-20.0); CO2, Blood 28 mmol/L (21-32); Calcium, Blood 8.8 mg/dL (8.5-10.1); Chloride, Blood 87 mmol/L (98-108); Creatinine, Blood 0.86 mg/dL (0.60-1.20); Glomerular Filtration Rate 109 (60-); Glucose, Blood 145 mg/dL (70-99); Phosphorus, Blood 2.6 mg/dL (2.5-4.9); Potassium, Blood 4.1 mmol/L (3.5-5.5); Sodium, Blood 126 mmol/L (136-145)
--- NOTE | 2021-09-24 17:56 | NUR ---
SHIFT SUMMARY PATIENT IS ALERT AND ORIENTED. PATIENT HAS HAD NO COMPLAINTS OF PAIN, SOB, NAUSEA, OR VOMITTING. PATIENT HAS HAD NO ACUTE EVENTS THIS SHIFT. VITAL SIGNS REVIEWED. PATIENT IS PLANNING ON POSSIBLE DISCHARGE TOMORROW PENDING MORNING LABS. BED IS LOCKED AND IN LOWEST POSITION. CALL LIGHT IN PLACE. WILL MONITOR UNTIL SHIFT CHANGE.
[2021-09-25 05:09] LABS: BASOPHILS ABSOLUTE AUTO 0.05 K/mm3 (0.00-0.23); BASOPHILS PERCENT AUTO 1 % (0-2); EOSINOPHILS ABSOLUTE AUTO 0.17 K/mm3 (0.00-0.68); EOSINOPHILS PERCENT AUTO 2 % (0-6); Hemoglobin 10.2 g/dL (13.5-17.5); IMMATURE GRAN PERCENT AUTO 2 % (0-1); LYMPHOCYTES ABSOLUTE AUTO 1.21 K/mm3 (0.84-5.20); LYMPHOCYTES PERCENT AUTO 12 % (21-46); MONOCYTES ABSOLUTE AUTO 1.66 K/mm3 (0.16-1.47); MONOCYTES PERCENT AUTO 17 % (4-13); Mean Corpuscular HGB 36.2 pg (26.0-34.0); Mean Corpuscular HGB Conc 36.4 g/dL (31.5-36.5); Mean Corpuscular Volume 99 fL (80-100); Mean Platelet Volume 10.4 fL (9.1-12.4); NEUTROPHILS ABSOLUTE AUTO 6.64 K/mm3 (1.96-9.15); NEUTROPHILS PERCENT AUTO 67 % (41-73); Platelet Count 81 K/mm3 (150-400); RDW Coefficient Variation 16.6 % (11.7-14.2); RDW Standard Deviation 59.2 fL (35.1-46.3); Red Blood Cell Count 2.82 M/mm3 (4.30-5.90); White Blood Cell Count 9.93 K/mm3 (4.00-11.30)
[2021-09-25 05:36] LABS: Albumin, Blood 3.5 g/dL (3.4-5.0); Anion Gap 9 mmol/L (6-16); Blood Urea Nitrogen 21 mg/dL (8-24); Bun/Creatinine Ratio 26.6 (12.0-20.0); CO2, Blood 29 mmol/L (21-32); Calcium, Blood 8.6 mg/dL (8.5-10.1); Chloride, Blood 88 mmol/L (98-108); Creatinine, Blood 0.79 mg/dL (0.60-1.20); Glomerular Filtration Rate 112 (60-); Glucose, Blood 95 mg/dL (70-99); Phosphorus, Blood 2.1 mg/dL (2.5-4.9); Potassium, Blood 3.9 mmol/L (3.5-5.5); Sodium, Blood 126 mmol/L (136-145)
--- NOTE | 2021-09-25 06:25 | NUR ---
SHIFT SUMMARY: PT IS A/OX3. HE IS INDEPENDENT IN THE ROOM AND WILL USE HIS CALL LIGHT FOR NEEDS. THE ARE NO NEW CHANGES TO REPORT THIS NOC SHIFT.
[2021-09-25] MEDS ORDERED: SPIR25 PO ×2 (12:04)
[2021-09-25] MEDS ORDERED: LACT10SY PO ×2 (12:05)
[2021-09-25] MEDS ORDERED: PANT40 PO ×2 (12:11)
[2021-09-25] MEDS ORDERED: MIDO5 PO ×2 (12:11)
[2021-09-25] MEDS ORDERED: SUCR1 PO ×2 (12:12)
--- NOTE | 2021-09-25 13:50 | NUR ---
DISCHARGE SUMMARY: PT EDUCATED ON DISCHARGE INSTRUCTIONS AND NEW MEDICATIONS. PT ADVISED NOT TO DRIVE OR GO CAMPING PER MD ORDERS AND TO GO TO LAB ON 09/30 FOR LAB DRAW FOR APPT SCHEDULED ON 10/01. PT VU. PT GOT DRESSED AND PACKED HIS BELONGINGS. ENSURED ALL WAS PACKED UP AND PT SON ARRIVED AND ESCORTED HIM TO POV VIA WC.
== END 2021-09-25 13:38 | disposition home or self-care (01) | DRG 871 ==
LOC: ER 18:15 → ICUW 22:25 → MEDS 22:25 → ICUW 23:51 → MEDS 09-16 18:50 → ICUW 09-19 22:49 → MEDS 09-21 11:19
PROVIDERS: Emergency Medicine; Family Medicine; Internal Medicine; Internal Medicine Nephrology; Student in an Organized Health Care Education/Training Program; ADMIT Internal Medicine
PROC: 0W9G3ZX Drainage of Peritoneal Cavity, Percutaneous Approach, Diagnostic (ICD-10-PCS; principal; 2021-09-14)
PROC: 0W9G3ZZ Drainage of Peritoneal Cavity, Percutaneous Approach (ICD-10-PCS; 2021-09-15)
PROC: 0W9G3ZZ Drainage of Peritoneal Cavity, Percutaneous Approach (ICD-10-PCS; 2021-09-17)
PROC: 0DJD8ZZ Inspection of Lower Intestinal Tract, Via Natural or Artificial Opening Endoscopic (ICD-10-PCS; 2021-09-18)
PROC: 0W9G3ZZ Drainage of Peritoneal Cavity, Percutaneous Approach (ICD-10-PCS; 2021-09-22)
DX: A41.9 Sepsis, unspecified organism (principal); I85.11 Secondary esophageal varices with bleeding; K76.7 Hepatorenal syndrome; N17.0 Acute kidney failure with tubular necrosis; E87.1 Hypo-osmolality and hyponatremia; J98.11 Atelectasis; K76.6 Portal hypertension; E87.2 Acidosis; K72.90 Hepatic failure, unspecified without coma; K70.31 Alcoholic cirrhosis of liver with ascites; K64.8 Other hemorrhoids; N14.1 Nephropathy induced by other drugs, medicaments and biological substances; I86.4 Gastric varices; T50.8X5A Adverse effect of diagnostic agents, initial encounter; K64.4 Residual hemorrhoidal skin tags; G47.00 Insomnia, unspecified; R31.0 Gross hematuria; K20.90 Esophagitis, unspecified without bleeding; K31.89 Other diseases of stomach and duodenum; D69.6 Thrombocytopenia, unspecified; B19.20 Unspecified viral hepatitis C without hepatic coma; E87.5 Hyperkalemia; K70.11 Alcoholic hepatitis with ascites; I10 Essential (primary) hypertension; Z87.891 Personal history of nicotine dependence; Z79.2 Long term (current) use of antibiotics; Z79.899 Other long term (current) drug therapy
CPT/HCPCS: 36415; 36430; 49082; 49083; 70450; 71045; 74177; 76857; 80048; 80053; 80069; 81001; 82042; 82140; 82150; 82247; 82570; 82803; 82945; 83605; 83615; 83690; 83735; 83930; 83935; 84100; 84145; 84156; 84157; 84295; 84300; 84550; 85025; 85610; 87040; 87070; 87075; 87205; 89051; 96374; 96376; 99285-25; A9270; C9113; G0480; J0515; J0696; J2060; J2405; J2550; J2704; J3010; J7120; P9041; P9046; Q9967

== ENCOUNTER 2021-09-27 07:12 | Emergency (ER) | payer OTHER ==
[~2021-09-27] VITALS: Ht 175.3 cm; Wt 99.8 kg
[~2021-09-27 07:12] MED LIST changes: +LACT10SY PO; +MIDO5 PO; +PANT40 PO; +SUCR1 PO
[2021-09-27 07:33] LABS: BASOPHILS ABSOLUTE AUTO 0.03 K/mm3 (0.00-0.23); BASOPHILS PERCENT AUTO 0 % (0-2); EOSINOPHILS ABSOLUTE AUTO 0.04 K/mm3 (0.00-0.68); EOSINOPHILS PERCENT AUTO 0 % (0-6); Hemoglobin 9.6 g/dL (13.5-17.5); IMMATURE GRAN ABSOLUTE AUTO 0.14 K/mm3 (0.00-0.10); IMMATURE GRAN PERCENT AUTO 2 % (0-1); LYMPHOCYTES ABSOLUTE AUTO 1.41 K/mm3 (0.84-5.20); LYMPHOCYTES PERCENT AUTO 16 % (21-46); MONOCYTES ABSOLUTE AUTO 1.54 K/mm3 (0.16-1.47); MONOCYTES PERCENT AUTO 17 % (4-13); Mean Corpuscular HGB 36.2 pg (26.0-34.0); Mean Corpuscular HGB Conc 36.9 g/dL (31.5-36.5); Mean Corpuscular Volume 98 fL (80-100); Mean Platelet Volume 10.9 fL (9.1-12.4); NEUTROPHILS ABSOLUTE AUTO 5.96 K/mm3 (1.96-9.15); NEUTROPHILS PERCENT AUTO 65 % (41-73); NRBC ABSOLUTE 0.02 K/mm3 (0.00-0.02); NRBC Auto 0.2 /100 WBC (0.0-0.2); RDW Coefficient Variation 17.6 % (11.7-14.2); RDW Standard Deviation 62.9 fL (35.1-46.3); Red Blood Cell Count 2.65 M/mm3 (4.30-5.90); White Blood Cell Count 9.12 K/mm3 (4.00-11.30)
[2021-09-27 07:35] LABS: Platelet Count 66 K/mm3 (150-400)
[2021-09-27 07:52] LABS: Albumin, Blood 3.6 g/dL (3.4-5.0); Albumin/Globulin Ratio 2.6 (0.8-1.8); Bilirubin, Total 7.6 mg/dL (0.1-1.0); Bun/Creatinine Ratio 24.9 (12.0-20.0); Calcium, Blood 8.4 mg/dL (8.5-10.1); Creatinine, Blood 0.93 mg/dL (0.60-1.20); Globulin, Blood 1.4 g/dL (2.2-4.0); Potassium, Blood 3.8 mmol/L (3.5-5.5)
[2021-09-27 08:26] LABS: International Normalized Ratio 1.83; Prothrombin Time Results 18.5 Sec (9.7-11.5)
[2021-09-27 08:36] LABS: Influenza A, PCR NEGATIVE (NEGATIVE); Influenza B, PCR NEGATIVE (NEGATIVE); Resp Syncytial Virus, PCR NEGATIVE (NEGATIVE)
[2021-09-27 09:20] LABS: SARS-Cov-2 (COVID-19) PCR, MMC POSITIVE (NEGATIVE)
[2021-09-27 10:34] LABS: Source, Urine Clean Catch
[2021-09-27 10:38] LABS: Appearance, Urine Clear (Clear); Bilirubin, Urine Neg (Neg); Blood, Urine Neg (Neg); Color, Urine Yellow (P-Yellow); Glucose Qualitative, Urine Neg (Neg); Ketones, Urine Neg (Neg); Leukocyte Esterase, Urine Neg (Neg); Nitrite, Urine Neg (Neg); Protein, Urine Neg (Neg); Urobilinogen, Urine NORM (Normal)
[2021-09-27 10:51] LABS: U Amphetamine Screen Not Detected; U Barbituate Screen Not Detected; U Benzodiazapine Screen DETECTED; U Buprenorphine Screen Not Detected; U Cannabinoids Screen DETECTED; U Cocaine Screen Not Detected; U Methadone Screen Not Detected; U Methamphetamine Screen Not Detected; U Opiates Screen Not Detected; U Oxycodone Screen Not Detected; U Phencyclidine Screen Not Detected; U Propoxyphene Screen Not Detected
== END 2021-09-27 12:15 | disposition home or self-care (01) ==
LOC: ER 07:12
PROVIDERS: Emergency Medicine
DX: U07.1 COVID-19 (principal); K74.60 Unspecified cirrhosis of liver; Z79.899 Other long term (current) drug therapy; Z87.891 Personal history of nicotine dependence
CPT/HCPCS: 0241U; 36415; 70450; 80053; 81003; 82140; 83735; 85025; 85610; 93005; 93010; A9270; G0480

== ENCOUNTER 2021-10-03 04:11 | Emergency (ER) | payer OTHER ==
[~2021-10-03] VITALS: Ht 170.2 cm; Wt 99.8 kg
== END 2021-10-03 07:05 | disposition home or self-care (01) ==
LOC: ER 04:11
DX: R10.9 Unspecified abdominal pain (principal); Z79.899 Other long term (current) drug therapy; Z87.891 Personal history of nicotine dependence
CPT/HCPCS: 99283

== ENCOUNTER 2021-10-13 16:08 | Inpatient (IN) | payer OTHER ==
[~2021-10-13] VITALS: Ht 170.2 cm; Wt 131.5 kg
[2021-10-13 16:38] LABS: BASOPHILS ABSOLUTE AUTO 0.05 K/mm3 (0.00-0.23); BASOPHILS PERCENT AUTO 0 % (0-2); EOSINOPHILS ABSOLUTE AUTO 0.05 K/mm3 (0.00-0.68); EOSINOPHILS PERCENT AUTO 0 % (0-6); Hematocrit 29.1 % (37.0-53.0); Hemoglobin 10.3 g/dL (13.5-17.5); IMMATURE GRAN ABSOLUTE AUTO 0.81 K/mm3 (0.00-0.10); IMMATURE GRAN PERCENT AUTO 4 % (0-1); LYMPHOCYTES ABSOLUTE AUTO 2.64 K/mm3 (0.84-5.20); LYMPHOCYTES PERCENT AUTO 12 % (21-46); MONOCYTES ABSOLUTE AUTO 1.42 K/mm3 (0.16-1.47); MONOCYTES PERCENT AUTO 6 % (4-13); Mean Corpuscular HGB 36.1 pg (26.0-34.0); Mean Corpuscular HGB Conc 35.4 g/dL (31.5-36.5); Mean Corpuscular Volume 102 fL (80-100); Mean Platelet Volume 10.3 fL (9.1-12.4); NEUTROPHILS ABSOLUTE AUTO 17.63 K/mm3 (1.96-9.15); NEUTROPHILS PERCENT AUTO 78 % (41-73); Platelet Count 116 K/mm3 (150-400); RDW Coefficient Variation 16.9 % (11.7-14.2); RDW Standard Deviation 62.8 fL (35.1-46.3); Red Blood Cell Count 2.85 M/mm3 (4.30-5.90)
[2021-10-13 17:32] LABS: Alanine Aminotransfer (ALT/SGP 88 U/L (12-78); Albumin, Blood 2.8 g/dL (3.4-5.0); Albumin/Globulin Ratio 1.3 (0.8-1.8); Alk Phos 179 U/L (50-136); Anion Gap 11 mmol/L (6-16); Aspartate Aminotrans (AST/SGOT 183 U/L (12-37); Bilirubin, Total 10.6 mg/dL (0.1-1.0); Blood Urea Nitrogen 45 mg/dL (8-24); Bun/Creatinine Ratio 40.5 (12.0-20.0); CO2, Blood 26 mmol/L (21-32); Calcium, Blood 8.7 mg/dL (8.5-10.1); Chloride, Blood 92 mmol/L (98-108); Creatinine, Blood 1.11 mg/dL (0.60-1.20); Ethanol (Alcohol), Blood, Med <3 mg/dL; Globulin, Blood 2.2 g/dL (2.2-4.0); Glomerular Filtration Rate 83 (60-); Glucose, Blood 148 mg/dL (70-99); Potassium, Blood 3.6 mmol/L (3.5-5.5); Sodium, Blood 129 mmol/L (136-145)
[2021-10-13 18:55] LABS: International Normalized Ratio 1.96; Prothrombin Time Results 19.7 Sec (9.7-11.5)
[2021-10-13 19:35] LABS: Influenza A, PCR NEGATIVE (NEGATIVE); Influenza B, PCR NEGATIVE (NEGATIVE); Resp Syncytial Virus, PCR NEGATIVE (NEGATIVE); SARS-Cov-2 (COVID-19) PCR, MMC NEGATIVE (NEGATIVE)
[2021-10-13 19:41] LABS: Automated BF WBC Count 0.256 K/mm3 (0-999); Body Fluid WBC Count 256 /mm3 (0-999)
[2021-10-13 20:06] LABS: Lactate Dehydrogenase, Body Fl 60 U/L
[2021-10-13 20:08] LABS: RBC Count, Body Fluid 132 /mm3 (0-0)
[2021-10-13 20:34] LABS: Appearance, Body Fluid Clear (Clear); Color, Body Fluid Yellow (None-Yellow); Total Cell Count, Body Fluid 100
[2021-10-13 23:25] LABS: Lactate Dehydrogenase (Ld),Bld 639 U/L (100-240)
[2021-10-14 05:12] LABS: BASOPHILS ABSOLUTE AUTO 0.04 K/mm3 (0.00-0.23); BASOPHILS PERCENT AUTO 0 % (0-2); EOSINOPHILS PERCENT AUTO 1 % (0-6); Hematocrit 28.3 % (37.0-53.0); Hemoglobin 10.2 g/dL (13.5-17.5); IMMATURE GRAN ABSOLUTE AUTO 0.39 K/mm3 (0.00-0.10); IMMATURE GRAN PERCENT AUTO 2 % (0-1); LYMPHOCYTES ABSOLUTE AUTO 2.13 K/mm3 (0.84-5.20); LYMPHOCYTES PERCENT AUTO 12 % (21-46); MONOCYTES ABSOLUTE AUTO 1.41 K/mm3 (0.16-1.47); MONOCYTES PERCENT AUTO 8 % (4-13); Mean Corpuscular HGB 36.6 pg (26.0-34.0); Mean Corpuscular Volume 101 fL (80-100); NEUTROPHILS ABSOLUTE AUTO 13.14 K/mm3 (1.96-9.15); NEUTROPHILS PERCENT AUTO 76 % (41-73); Platelet Count 81 K/mm3 (150-400); RDW Coefficient Variation 16.6 % (11.7-14.2); RDW Standard Deviation 60.6 fL (35.1-46.3); Red Blood Cell Count 2.79 M/mm3 (4.30-5.90); White Blood Cell Count 17.21 K/mm3 (4.00-11.30)
[2021-10-14 05:54] LABS: Albumin, Blood 2.6 g/dL (3.4-5.0); Albumin/Globulin Ratio 1.2 (0.8-1.8); Bilirubin, Total 12.6 mg/dL (0.1-1.0); Bun/Creatinine Ratio 42.1 (12.0-20.0); Calcium, Blood 8.1 mg/dL (8.5-10.1); Creatinine, Blood 0.78 mg/dL (0.60-1.20); Globulin, Blood 2.1 g/dL (2.2-4.0); Potassium, Blood 3.2 mmol/L (3.5-5.5); Total Protein, Blood 4.7 g/dL (6.4-8.2)
--- NOTE | 2021-10-14 05:56 | NUR ---
SHIFT SUMMARY 46 YR M ADMITTED ON 10/13/21 FOR ABDOMINAL PAIN AND AMS. FULL CODE. PT IS A&O X 4 BUT APPEARED TO BE VERY UNCOMFORTABLE UPON ARRIVAL TO THIS UNIT. HE C/O THIRST AND ASKED FOR ICE SHIPS AND POPSICLES. HE IS ON A 1200ML FLUID RESTRICTION. HE C/O PAIN IN HIS FINGER TIPS AND IT WAS NOTED THAT THEY ARE DRY AND CRACKED TO THE POINT OF BEING SPLIT OPEN. THE MIDDLE FINGER ON THE LEFT HAND WAS ACTIVELY BLEEDING SO GAUZE AND BANDAIDS WERE APPLIED. PT IS REQUESTING FOR DOC TO EXAMINE FINGERS IN THE A.M. ONCE PT WAS SETTLED HE SLEPT FOR THE REST OF THE NIGHT. HE STATES THAT HE IS TOO WEAK TO GET OUT OF BED TO USE THE BATHROOM OR THE BSC. AND HE DOES NOT WANT TO USE A URINAL. HE TOLD THIS NURSE THAT HE WILL JUST "PEE AND POOP " IN HIS DIAPER AND THAT I CAN CLEAN IT UP FOR HIM. USE OF URINAL IS BEING STRONGLY ENCOURAGED.
--- NOTE | 2021-10-14 11:17 | NUR ---
Patient admitted for sepsis, vitals stable, afebrile. Patient requesting ice chips this morning before breakfast, provided education on fluid restriction, will reiforce teaching. Patients skin is yellow, severe abd distension, abdomen is taut, bandaid in RLQ from paracentesis, no drainage noted at site. Patient reports increased weakness, unable to get OOB, incontinent of B/B. Took all medications this morning. Patient calls for help, voice is hoarse, difficulty hearing pateint. Patient moved to different medical room, handoff report with RN, patient assignment ended at 1010.
--- NOTE | 2021-10-14 17:10 | NUR ---
SHIFT SUMMARY PT TRANSFERED TO 324 THIS AM. EASILY AGITATED T/O THE SHIFT RELATED TO HIS FLUID RESTRICTION AND DRY MOUTH. THIS RN GAVE PT ORAL SWABS AND MOUTH MOISTERIZER TO HELP. PT APPRECIATED THIS. CONTINUES TO BE DEMANDING AND IMPATIENT. IMPULSIVE GETTING OUT OF BED. PT FOUND TO BE A SBA TRANSFER AND HAS GOOD BED MOBILITY. VS REVIEWED. PT TAKING LACTULOSE WELL. FINGERTIPS VERY CRACKED AND BLISTERED. BANDAGES APPLIED FOR SOME COMFORT. CONCERN WRITTEN ON BOARD FOR MD TO ADDRESS. PT RESTING IN BED AFTER TOILETING. CALL LIGHT IN REACH. DENIES OTHER NEEDS AT THIS TIME.
--- NOTE | 2021-10-15 04:32 | NUR ---
SHIFT SUMMARY PT WITH MULTIPLE INCONT LIQUID BMS THIS SHIFT. COMPLETE BED/LINEN/GOWN CHANGE MULTIPLE TIMES. FLUID RESTRICTION PER ORDERS. PT CONT TO PICK AND BITE AT FINGER TIPS MAKING THEM BLEED. WRAPPED WITH GAUZE AND MONITORING. PT AWAKE AND ALERT MOST OF NIGHT, BUT CAN BE FORGETFUL AT TIMES AND MUMBLES HIS SPEECH. REMAINS PLEASANT AND COOPERATIVE. BED ALARM IN PLACE FOR SAFETY. USES CALL LIGHT FREQUENTLY.
[2021-10-15 09:57] LABS: BASOPHILS ABSOLUTE AUTO 0.07 K/mm3 (0.00-0.23); BASOPHILS PERCENT AUTO 0 % (0-2); EOSINOPHILS ABSOLUTE AUTO 0.12 K/mm3 (0.00-0.68); EOSINOPHILS PERCENT AUTO 1 % (0-6); Hematocrit 30.2 % (37.0-53.0); Hemoglobin 10.5 g/dL (13.5-17.5); IMMATURE GRAN ABSOLUTE AUTO 0.48 K/mm3 (0.00-0.10); IMMATURE GRAN PERCENT AUTO 3 % (0-1); LYMPHOCYTES ABSOLUTE AUTO 2.59 K/mm3 (0.84-5.20); LYMPHOCYTES PERCENT AUTO 16 % (21-46); MONOCYTES ABSOLUTE AUTO 1.41 K/mm3 (0.16-1.47); MONOCYTES PERCENT AUTO 9 % (4-13); Mean Corpuscular HGB 36.2 pg (26.0-34.0); Mean Corpuscular HGB Conc 34.8 g/dL (31.5-36.5); Mean Corpuscular Volume 104 fL (80-100); Mean Platelet Volume 9.8 fL (9.1-12.4); NEUTROPHILS ABSOLUTE AUTO 11.41 K/mm3 (1.96-9.15); NEUTROPHILS PERCENT AUTO 71 % (41-73); Platelet Count 74 K/mm3 (150-400); RDW Coefficient Variation 16.8 % (11.7-14.2); RDW Standard Deviation 62.4 fL (35.1-46.3); White Blood Cell Count 16.08 K/mm3 (4.00-11.30)
[2021-10-15 10:32] LABS: Bun/Creatinine Ratio 36.9 (12.0-20.0); Calcium, Blood 8.4 mg/dL (8.5-10.1); Creatinine, Blood 0.73 mg/dL (0.60-1.20); Potassium, Blood 3.2 mmol/L (3.5-5.5)
--- NOTE | 2021-10-15 18:30 | NUR ---
SUMMARY- PT ALERT TO SELF PLACE, FAMILY AND GEN CIRCUMSTANCES. PT VERY WEAK, BEDREST, 2 PERSON CHANGE. INCONT LOODE LACTALOSE STOOLS APPROX 3 TODAY. PT TOLERATING FOOD AND FLUIDS SPARINGLY, ON RESITRICTION. MOSTLY EATS ICE CHIPS. HAD PARACENTESIS WITH 8.2L DRAWN OFF. ALBUMIN REPLACEMENT GIVEN. PT UNABLE TO VOID THIS AFTERNOON, BLADDER SCAN FOR 1284ML, HARD TO TELL ACCURACT THIS SCAN AOUND 1030 BEFORE TAP. 4 ATTEMPTS TO PASS A SINGER BUT UNABLE TO INSERT. TRIED PEDS SINGER AND STILL UNABLE TO PASS. PT VOIDING INCONT AND ALSO IN URINAL 120 ML AT A TIME APPROX 3-4 TIMES. FINGERS WRAPPED WITH BANDAGES TO PROTECT FROM PT BITING AND PEALING. WILL REPORT TO ALLY RICE.
--- NOTE | 2021-10-15 19:42 | NUR ---
1030 NOTIFIED PARVIN OF BLADDER SCAN 1284, ORDER FOR SINGER CATH PLACEMENT. 2 RN'S ATTEMPTED 2 TIMES WITH 14FR AND 14 COUDE, UNABLE TO PASS SINGER RELATED TO OBSTRUCTION OF ANATOMY. PT STILL ABLE TO VOID SM AMOUNTS 100ML IN URINAL WITH ASSIST PUSHING IN HERNIA AND BLADDER. PT ALSO INCONTINENT. CALLED DR MELENDREZ AROUND 1300, AWARE THAT RN'S UNABLE TO PLACE SINGER, AND THAT SCAN MAY NOT BE ACCURATE IN RELATION TO LG AMOUNT OF FLUID IN PT'S ABD, WILL TAKE TO PARACENTESIS AND EVAL AFTER TAP. AT 1900, PT BLADDER SCAN 570ML, PT VOIDED SOME IN HIS ATTENDS AFTER THIS SCAN. DR MELENDREZ AT BEDSIDE AND AWARE OF THE PROBLEMS OF URINATION AND THAT UNABLE TO PLACE SINGER UNTIL TOMORROW WITH SPECIAL SERVICES. ORDER FOR FLOMAX. REPORTED ALL TO NOC KRYSTAL MACHUCA.
--- NOTE | 2021-10-16 04:42 | NUR ---
SHIFT SUMMARY ADMITTED FOR HEPATIC ENCEPHALOPATHY/RLL PNEUMONIA. FULL CODE. PARACENTESIS PERFORMED FOR ASCITES. 1200 ML FLUID RESTRICTION. TELEMETRY: NSR @ 95 BPM. MECH SOFT DIET. SPASTIC MOVEMENTS. CONFUSED FREQUENTLY. CAN ASK FOR NEEDS. 1-2 ASSIST W/FWW. RETAINING URINE. FLOMAX GIVEN. HOSPITALIST AWARE OF FAILED SINGER ATTEMPTS. UNMEASURED VOIDS X2, SIGNIFICANT AMOUNT REPORTED BY BOTTOM SPRAYER.
[2021-10-16 05:07] LABS: BASOPHILS ABSOLUTE AUTO 0.08 K/mm3 (0.00-0.23); BASOPHILS PERCENT AUTO 1 % (0-2); EOSINOPHILS PERCENT AUTO 1 % (0-6); Hemoglobin 10.5 g/dL (13.5-17.5); IMMATURE GRAN ABSOLUTE AUTO 0.68 K/mm3 (0.00-0.10); IMMATURE GRAN PERCENT AUTO 4 % (0-1); LYMPHOCYTES ABSOLUTE AUTO 2.54 K/mm3 (0.84-5.20); LYMPHOCYTES PERCENT AUTO 16 % (21-46); MONOCYTES ABSOLUTE AUTO 2.15 K/mm3 (0.16-1.47); MONOCYTES PERCENT AUTO 13 % (4-13); Mean Corpuscular HGB 36.3 pg (26.0-34.0); Mean Corpuscular Volume 104 fL (80-100); Mean Platelet Volume 10.1 fL (9.1-12.4); NEUTROPHILS PERCENT AUTO 65 % (41-73); Platelet Count 64 K/mm3 (150-400); RDW Coefficient Variation 16.3 % (11.7-14.2); RDW Standard Deviation 62.4 fL (35.1-46.3); Red Blood Cell Count 2.89 M/mm3 (4.30-5.90); White Blood Cell Count 16.05 K/mm3 (4.00-11.30)
[2021-10-16 06:31] LABS: Albumin/Globulin Ratio 1.5 (0.8-1.8); Bilirubin, Total 9.9 mg/dL (0.1-1.0); Bun/Creatinine Ratio 27.7 (12.0-20.0); Calcium, Blood 8.1 mg/dL (8.5-10.1); Creatinine, Blood 0.79 mg/dL (0.60-1.20); Potassium, Blood 3.6 mmol/L (3.5-5.5)
[2021-10-16 09:55] LABS: BASOPHILS ABSOLUTE AUTO 0.07 K/mm3 (0.00-0.23); BASOPHILS PERCENT AUTO 1 % (0-2); EOSINOPHILS ABSOLUTE AUTO 0.15 K/mm3 (0.00-0.68); EOSINOPHILS PERCENT AUTO 1 % (0-6); Hematocrit 30.5 % (37.0-53.0); Hemoglobin 10.3 g/dL (13.5-17.5); IMMATURE GRAN ABSOLUTE AUTO 0.77 K/mm3 (0.00-0.10); IMMATURE GRAN PERCENT AUTO 5 % (0-1); LYMPHOCYTES ABSOLUTE AUTO 2.31 K/mm3 (0.84-5.20); LYMPHOCYTES PERCENT AUTO 15 % (21-46); MONOCYTES ABSOLUTE AUTO 1.75 K/mm3 (0.16-1.47); MONOCYTES PERCENT AUTO 12 % (4-13); Mean Corpuscular HGB 35.2 pg (26.0-34.0); Mean Corpuscular HGB Conc 33.8 g/dL (31.5-36.5); Mean Corpuscular Volume 104 fL (80-100); Mean Platelet Volume 9.9 fL (9.1-12.4); NEUTROPHILS ABSOLUTE AUTO 10.19 K/mm3 (1.96-9.15); NEUTROPHILS PERCENT AUTO 67 % (41-73); Platelet Count 64 K/mm3 (150-400); RDW Coefficient Variation 16.4 % (11.7-14.2); RDW Standard Deviation 62.8 fL (35.1-46.3); Red Blood Cell Count 2.93 M/mm3 (4.30-5.90); White Blood Cell Count 15.24 K/mm3 (4.00-11.30)
[2021-10-16 10:29] LABS: Bun/Creatinine Ratio 29.9 (12.0-20.0); Calcium, Blood 8.4 mg/dL (8.5-10.1); Creatinine, Blood 0.77 mg/dL (0.60-1.20); Potassium, Blood 3.6 mmol/L (3.5-5.5)
--- NOTE | 2021-10-16 18:43 | NUR ---
SHIFT SUMMARY: PT A/O X 2-3. ONE ASSIST WHEN UP. PT PLEASANT AND COOPERATIVE WITH CARES. PT VOICE WAS VERY HOARSE AND HE WAS SLOW TO RESPOND BUT BY END OF SHIFT WAS MUCH MORE VERBAL AND ANSWERING QUESTIONS QUICKER. PT SPASTICITY WAS ALSO IMPROVED. ABD IS MUCH DISTENDED TODAY. ABD PAD OVER PARACENTESIS SITE WAS HALF SOAKED WITH CLEAR FLUIDS. PT SOAKED ATTENDS WHEN HE DID URINATE. URINE YELLOW AND STRONG SMELLING. PT CONTINUES TO HAVE BLEEDING AT ENDS OF FINGERS. UNSURE IF HE IS PICKING AT HIS SKIN OR THEY ARE BLISTERED. WOUND WERE CLEANSED AND OPEN WOUNDS COVERED WITH BANDAGES. PT HAD NAUSEA THIS MORNING BUT DID NOT COMPLAIN THE REST OF THE DAY AFTER ZOFRAN GIVEN. IV WAS NOT WORKING THIS MORNING AND WHEN PT WAS TOLD A NEW IV NEEDED TO BE STARTED HE SHOOK HIS HEAD NO. ORDERS WERE RECEIVED TO CHANGE MEDICATIONS TO ORAL FORM. NO OTHER CONCERNS AT THIS TIME.
--- NOTE | 2021-10-17 04:11 | NUR ---
SHIFT SUMMARY ADMITTED FOR HEPATIC ENCEPHALOPATHY/RLL PNEU. FULL CODE. 1200 ML FLUID RESTRICTION. CONFUSED. SPASTIC MOVEMENTS. INCONTINENT. LACTULOSE HELD THIS SHIFT DUE TO PARAMETERS. 1-2 ASSIST TO BSC. ON RA. MECH SOFT/GRND MEAT DIET. HX OF ETOH, CIRRHOSIS, PARACENTESIS PROCEDURES, ALBUMIN INFUSIONS. NO NEW CONCERNS THIS SHIFT.
[2021-10-17 09:48] LABS: BASOPHILS ABSOLUTE AUTO 0.13 K/mm3 (0.00-0.23); BASOPHILS PERCENT AUTO 1 % (0-2); EOSINOPHILS ABSOLUTE AUTO 0.27 K/mm3 (0.00-0.68); EOSINOPHILS PERCENT AUTO 2 % (0-6); Hematocrit 34.6 % (37.0-53.0); Hemoglobin 11.9 g/dL (13.5-17.5); IMMATURE GRAN ABSOLUTE AUTO 0.67 K/mm3 (0.00-0.10); IMMATURE GRAN PERCENT AUTO 4 % (0-1); LYMPHOCYTES ABSOLUTE AUTO 2.75 K/mm3 (0.84-5.20); LYMPHOCYTES PERCENT AUTO 17 % (21-46); MONOCYTES ABSOLUTE AUTO 1.86 K/mm3 (0.16-1.47); MONOCYTES PERCENT AUTO 12 % (4-13); Mean Corpuscular HGB 36.6 pg (26.0-34.0); Mean Corpuscular HGB Conc 34.4 g/dL (31.5-36.5); Mean Corpuscular Volume 107 fL (80-100); Mean Platelet Volume 9.9 fL (9.1-12.4); NEUTROPHILS PERCENT AUTO 64 % (41-73); Platelet Count 63 K/mm3 (150-400); RDW Coefficient Variation 16.6 % (11.7-14.2); RDW Standard Deviation 64.4 fL (35.1-46.3); Red Blood Cell Count 3.25 M/mm3 (4.30-5.90); White Blood Cell Count 15.78 K/mm3 (4.00-11.30)
[2021-10-17 10:10] LABS: Bun/Creatinine Ratio 26.9 (12.0-20.0); Calcium, Blood 8.7 mg/dL (8.5-10.1); Creatinine, Blood 0.71 mg/dL (0.60-1.20); Potassium, Blood 3.7 mmol/L (3.5-5.5)
--- NOTE | 2021-10-18 04:30 | NUR ---
SHIFT SUMMARY 46 YR M ADMITTED ON 10/13/21 FOR LIVER FAILOURE/ASCITES. FULL CODE. PT WAS BASICALLY NON-VERBAL THIS SHIFT. WHEN SPOKEN TO OR ASKED QUESTIONS HE JUST MUMBLED INCOHERANTLY. HIS MOVEMENTS ARE SPASTIC AND HAVE NO RHYME OR REASON TO THEM. EVERYTHING IN HIS ROOM IS COVERED WITH BLOOD FROM THE BLEEDING AT HIS FINGERTIPS. HE WILL NOT KEEP BANDAGES ON AND WITH HIS SPASTIC MOVEMENTS THE BLOOD IS SPREAD ALL OVER THE ROOM; SHEETS, BLANKETS, BED, TABLE, CALL LIGHT, FLOOR ETC. HIS FIANCE GOT HIM IN THE SHOWER THIS SHIFT AND HE STAYED IN THERE FOR OVER AN HOUR. HE UNHOOKED THE SHOWER HEAD AND FLOODED THE BATHROOM FLOOR. IT IS THOUGH HE CANNOT STOP MOVING BUT HE DOES NOT KNOW WHAT TO DO WITH HIMSELF. HE IS NOT REDIRECTABLE. HE FINALLY FELL ASLEEP AT APPROX 0100. EASILY REDIRECTED. HE WAS MEDICATED PER EMAR AND FINALLY FELL ASLEEP
[2021-10-18 05:50] LABS: BASOPHILS ABSOLUTE AUTO 0.08 K/mm3 (0.00-0.23); BASOPHILS PERCENT AUTO 1 % (0-2); EOSINOPHILS ABSOLUTE AUTO 0.29 K/mm3 (0.00-0.68); EOSINOPHILS PERCENT AUTO 2 % (0-6); Hematocrit 30.8 % (37.0-53.0); Hemoglobin 10.6 g/dL (13.5-17.5); IMMATURE GRAN ABSOLUTE AUTO 0.45 K/mm3 (0.00-0.10); IMMATURE GRAN PERCENT AUTO 3 % (0-1); LYMPHOCYTES ABSOLUTE AUTO 2.37 K/mm3 (0.84-5.20); LYMPHOCYTES PERCENT AUTO 18 % (21-46); MONOCYTES ABSOLUTE AUTO 1.49 K/mm3 (0.16-1.47); MONOCYTES PERCENT AUTO 11 % (4-13); Mean Corpuscular HGB 36.3 pg (26.0-34.0); Mean Corpuscular HGB Conc 34.4 g/dL (31.5-36.5); Mean Corpuscular Volume 106 fL (80-100); NEUTROPHILS PERCENT AUTO 65 % (41-73); Platelet Count 58 K/mm3 (150-400); RDW Coefficient Variation 16.2 % (11.7-14.2); RDW Standard Deviation 61.9 fL (35.1-46.3); Red Blood Cell Count 2.92 M/mm3 (4.30-5.90); White Blood Cell Count 13.28 K/mm3 (4.00-11.30)
[2021-10-18 06:11] LABS: Albumin, Blood 2.9 g/dL (3.4-5.0); Albumin/Globulin Ratio 1.3 (0.8-1.8); Bilirubin, Total 12.6 mg/dL (0.1-1.0); Bun/Creatinine Ratio 24.8 (12.0-20.0); Calcium, Blood 8.6 mg/dL (8.5-10.1); Creatinine, Blood 0.97 mg/dL (0.60-1.20); Globulin, Blood 2.3 g/dL (2.2-4.0); Total Protein, Blood 5.2 g/dL (6.4-8.2)
--- NOTE | 2021-10-18 17:29 | NUR ---
PT CAN MAKE SOME NEEDS KNOWN, CURRENTLY COOPERATIVE WITH MEDICATION AND CARE. SBA FOR TRANSFERS. CURRENTLY DENIES PAIN OR FEELING ITCHY. PT IS CALMER TODAY AND WAS ABLE TO GET SOME SLEEP LAST NIGHT. PT STILL NOT LEAVING DRESSINGS ON, BUT HAS NOT BEEN BLEEDING MUCH YESTERDAY AT THE FINGERS. PT AGREED TO DNR STATUS TODAY. SIGNIFICANT OTHER MARIA DEL ROSARIO HAS BEEN AT BESIDE AND PATIENT'S WISHES HER TO BE HIS POA. PT IS EATING AND DRINKING WELL. NO ACUTE CHANGES THIS SHIFT. CALL-LIGHT WITHIN REACH, BED IN LOWEST POSITION.
--- NOTE | 2021-10-19 13:00 | NUR ---
Visit made to review options for goals and plan of care per request of pt's SO, Nilda. Nilda had questions about Hospice services, OP Palliative care, on going paracentesis, s/s managment and dc planning. Pt has indicated to RN and againg to me today that Nilda is his medical surrogate decision maker. He is in constant motion even when he appears to be sleeping. Nilda & I made attempts to engage and include Richard in the conversation but he did not participate, other than to say, "I don't know" when asked his preference or wishes about ongoing care. Chief c/o being cold all the time. Warmed blanket and extra blanket brought to pt. He also has a beanie hat on. Nilda and physician clarified DNR status yesterday. Pt anxious & restless t/o visit. I understand from KRYSTAL and Nilda that this is much improved from previous days. I offered to complete a POLST with them, which Nilda was in favor of. That was done and after signed, copies made and sent to medical records for scanning into EMR. Copy and original on chart to give Nilda when she returns. After my visit, Nilda indicated they would like to start with OP Palliative Care services initially but was also very interested in Hospice in the near future. She wants pt to be able to continue getting abd drained as needed for comfort. I briefly discussed pleurex drain. I encouraged her to discuss with Richard's drs in the event it would be an appropriate comfort measure for him. Nilda feels that pt's restlessness and involuntary movement is controlled well enough that she may be able to take him home and care for him there with either hospice or palliative care support. After Physician rounded, call received that and Nilda agreed that hospice plan of care would best meet pt's needs with plan for d/c home tomorrow possibly. Message left for CM, who will be available tomorrow. Nilda informed of OP Pal care available/brochure given and informed on three hospice agencies that serve our area locally. She does not have experience with any of them or a preference at this time.
[2021-10-19 15:36] LABS: BASOPHILS ABSOLUTE AUTO 0.05 K/mm3 (0.00-0.23); BASOPHILS PERCENT AUTO 0 % (0-2); EOSINOPHILS ABSOLUTE AUTO 0.25 K/mm3 (0.00-0.68); EOSINOPHILS PERCENT AUTO 2 % (0-6); Hematocrit 30.4 % (37.0-53.0); Hemoglobin 10.6 g/dL (13.5-17.5); IMMATURE GRAN ABSOLUTE AUTO 0.26 K/mm3 (0.00-0.10); IMMATURE GRAN PERCENT AUTO 2 % (0-1); LYMPHOCYTES ABSOLUTE AUTO 2.06 K/mm3 (0.84-5.20); LYMPHOCYTES PERCENT AUTO 15 % (21-46); MONOCYTES PERCENT AUTO 8 % (4-13); Mean Corpuscular HGB 36.8 pg (26.0-34.0); Mean Corpuscular HGB Conc 34.9 g/dL (31.5-36.5); Mean Corpuscular Volume 106 fL (80-100); Mean Platelet Volume 10.5 fL (9.1-12.4); NEUTROPHILS ABSOLUTE AUTO 10.51 K/mm3 (1.96-9.15); NEUTROPHILS PERCENT AUTO 74 % (41-73); Platelet Count 65 K/mm3 (150-400); RDW Coefficient Variation 16.5 % (11.7-14.2); Red Blood Cell Count 2.88 M/mm3 (4.30-5.90); White Blood Cell Count 14.23 K/mm3 (4.00-11.30)
[2021-10-19 15:48] LABS: International Normalized Ratio 2.16; Prothrombin Time Results 21.6 Sec (9.7-11.5)
[2021-10-19 15:50] LABS: Albumin, Blood 2.8 g/dL (3.4-5.0); Albumin/Globulin Ratio 1.1 (0.8-1.8); Bilirubin, Total 8.4 mg/dL (0.1-1.0); Bun/Creatinine Ratio 27.1 (12.0-20.0); Calcium, Blood 8.5 mg/dL (8.5-10.1); Creatinine, Blood 1.07 mg/dL (0.60-1.20); Globulin, Blood 2.6 g/dL (2.2-4.0); Potassium, Blood 4.2 mmol/L (3.5-5.5); Total Protein, Blood 5.4 g/dL (6.4-8.2)
--- NOTE | 2021-10-20 04:28 | NUR ---
SHIFT SUMMARY 46 YR M ADMITTED ON 10/13/21 FOR LIVER FAILURE/ASCITES. DNR. PT IS BEING TRANSITIONED TO HOSPICE CARE. NO ACUTE CHANGES THIS SHIFT. PT WAS A BIT MORE PLEASANT THAN USUAL AND IS BEING BETTER ABOUT NOT THROWING TRASH ALL OVER THE ROOM AFTER HE WAS TALKED TO ABOUT IT THIS MORNING. DIANELYS WAS IN THE ROOM UNTIL APPROX 2330. HER PRESENCE DEFINATELY SEEMS TO HELP THE PT STAY FOCUSED AND BETTER WELL BEHAVED.
[2021-10-20 05:59] LABS: BASOPHILS ABSOLUTE AUTO 0.08 K/mm3 (0.00-0.23); BASOPHILS PERCENT AUTO 1 % (0-2); EOSINOPHILS ABSOLUTE AUTO 0.28 K/mm3 (0.00-0.68); EOSINOPHILS PERCENT AUTO 2 % (0-6); Hemoglobin 9.8 g/dL (13.5-17.5); IMMATURE GRAN ABSOLUTE AUTO 0.39 K/mm3 (0.00-0.10); IMMATURE GRAN PERCENT AUTO 3 % (0-1); LYMPHOCYTES ABSOLUTE AUTO 2.46 K/mm3 (0.84-5.20); LYMPHOCYTES PERCENT AUTO 17 % (21-46); MONOCYTES ABSOLUTE AUTO 1.49 K/mm3 (0.16-1.47); MONOCYTES PERCENT AUTO 10 % (4-13); Mean Corpuscular HGB 36.4 pg (26.0-34.0); Mean Corpuscular HGB Conc 33.8 g/dL (31.5-36.5); Mean Corpuscular Volume 108 fL (80-100); Mean Platelet Volume 10.7 fL (9.1-12.4); NEUTROPHILS ABSOLUTE AUTO 9.93 K/mm3 (1.96-9.15); NEUTROPHILS PERCENT AUTO 68 % (41-73); Platelet Count 61 K/mm3 (150-400); RDW Coefficient Variation 16.6 % (11.7-14.2); RDW Standard Deviation 65.4 fL (35.1-46.3); Red Blood Cell Count 2.69 M/mm3 (4.30-5.90); White Blood Cell Count 14.63 K/mm3 (4.00-11.30)
[2021-10-20 06:17] LABS: International Normalized Ratio 2.19; Prothrombin Time Results 21.8 Sec (9.7-11.5)
[2021-10-20 06:26] LABS: Albumin, Blood 2.6 g/dL (3.4-5.0); Albumin/Globulin Ratio 1.1 (0.8-1.8); Bun/Creatinine Ratio 25.4 (12.0-20.0); Calcium, Blood 8.4 mg/dL (8.5-10.1); Creatinine, Blood 1.34 mg/dL (0.60-1.20); Globulin, Blood 2.4 g/dL (2.2-4.0); Potassium, Blood 4.3 mmol/L (3.5-5.5)
--- NOTE | 2021-10-20 14:33 | NUR ---
Summary of visits and case conferences t/o day. Visit made this am. Pt appears more comfortable and calm than on previous visits over the WE. He is more still, resting in bed, without the constant motion noted previously. He is more engaged in discussing future plan of care. Nilda requested more info on hospice agencies available locally and I brought brochures for all three agencies. Spoke with JT, who planned to follow up with choice letter and visit after I did. Nilda and Richard inquiring about future tx of infections and ascites. They will discuss possibility of a pleurex drain with . Reviewed questions that they would want to ask hospice agency based on issues that are important to them. Blank Durable POA form brought to Nilda at her request. I arranged for Aida to assist with signing, once completed and Both Nilda and Richard have their photo ID available. Case conferenced with pt's RN, JT and Dr duval re: advanced care planning and updates to plan of care.
--- NOTE | 2021-10-21 05:47 | NUR ---
PT WAS CALM AND COOPERATIVE THROUGHOUT SHIFT. ORDER FOR NPO WAS FOLLOWED W/O INCIDENT. PT ANTICIPATING PLEUR-X PLACEMENT, THEN D/C HOME WITH HOSPICE. NO ISSUES NOTED THROUGHOUT SHIFT.
--- NOTE | 2021-10-21 13:52 | NUR ---
Spiritual care visit conducted. Pt's S.O., Nilda, is outside pt's rm in the hallway, crying. I usher her to a more quiet place to sit and talk. She weeps as she tells the story of pt's life, struggle with alcohol and how they met. She tells me about the stressors in her life and the ache of watching someone she loves suffer and then to have to take him home to care for him in his last days. We explore her coping skill, resources and brinda background. We look at the powerful gift that she is giving to care give for him during this season and the special kind of love that she has to step up and do so. I normalize her experience and provide emotional support, listen empathically and provide gentle compliance counsel and prayer. Nilda responds well and shows reduced stress and feeling valued.
[2021-10-21] MEDS ORDERED: FOLI1 PO (16:39)
[2021-10-21] MEDS ORDERED: CIPR750 PO (16:39)
[2021-10-21] MEDS ORDERED: ONDA4 PO (16:42)
[2021-10-21] MEDS ORDERED: Seroquel Xr50 MG PO (16:42)
[2021-10-21] MEDS ORDERED: Thiamine HCl100 MG PO (16:43)
[2021-10-21] MEDS ORDERED: TAMS.4ER PO (16:43)
== END 2021-10-21 17:03 | disposition hospice, home (50) | DRG 871 ==
LOC: ER 16:08 → MEDS 21:48
PROVIDERS: Emergency Medicine; Internal Medicine; Student in an Organized Health Care Education/Training Program; ADMIT Internal Medicine
PROC: 3E03329 Introduction of Other Anti-infective into Peripheral Vein, Percutaneous Approach (ICD-10-PCS; principal; 2021-10-13)
PROC: 0W9G3ZZ Drainage of Peritoneal Cavity, Percutaneous Approach (ICD-10-PCS; 2021-10-14)
PROC: 0W9G3ZZ Drainage of Peritoneal Cavity, Percutaneous Approach (ICD-10-PCS; 2021-10-16)
PROC: BW111ZZ Fluoroscopy of Abdomen and Pelvis using Low Osmolar Contrast (ICD-10-PCS; 2021-10-21)
PROC: 0W9G30Z Drainage of Peritoneal Cavity with Drainage Device, Percutaneous Approach (ICD-10-PCS; 2021-10-21)
DX: A41.59 Other Gram-negative sepsis (principal); J18.9 Pneumonia, unspecified organism; K65.2 Spontaneous bacterial peritonitis; L03.311 Cellulitis of abdominal wall; E87.1 Hypo-osmolality and hyponatremia; E87.2 Acidosis; K76.6 Portal hypertension; I85.10 Secondary esophageal varices without bleeding; R65.20 Severe sepsis without septic shock; Z51.5 Encounter for palliative care; K72.90 Hepatic failure, unspecified without coma; D69.6 Thrombocytopenia, unspecified; B18.2 Chronic viral hepatitis C; F15.10 Other stimulant abuse, uncomplicated; F17.210 Nicotine dependence, cigarettes, uncomplicated; K70.31 Alcoholic cirrhosis of liver with ascites; K64.8 Other hemorrhoids; K64.4 Residual hemorrhoidal skin tags; K20.90 Esophagitis, unspecified without bleeding; Z20.822 Contact with and (suspected) exposure to COVID-19; K40.90 Unilateral inguinal hernia, without obstruction or gangrene, not specified as recurrent; R33.9 Retention of urine, unspecified; E87.6 Hypokalemia; R45.1 Restlessness and agitation; D53.9 Nutritional anemia, unspecified; R41.0 Disorientation, unspecified; Z87.19 Personal history of other diseases of the digestive system; Z98.890 Other specified postprocedural states; Z79.899 Other long term (current) drug therapy; Z86.16 Personal history of COVID-19
CPT/HCPCS: 0241U; 36415; 49083; 49418; 71045; 76937; 80048; 80053; 82140; 82607; 82746; 83605; 83615; 85025; 85610; 85730; 87040; 87070; 87077; 87186; 87205; 89051; 93005; 93010; 94760; 96361-59; 96365-59; 97116; 97162; 97166; 97535; 99285-25; A9270; C1729; C1769; C1894; G0480; J0456; J0694; J0696; J2405; J7030; J7040; J7050; P9047